=== PATIENT | female | born 1945 | race Caucasian/White ===

== ENCOUNTER 2016-07-31 09:06 | Outpatient (CLI) | payer OTHER | END 2016-07-31 09:07 | disposition critical access hospital (66) | DX: R07.81 Pleurodynia (principal); W01.0XXA Fall on same level from slipping, tripping and stumbling without subsequent striking against object, initial encounter; Y92.009 Unspecified place in unspecified non-institutional (private) residence as the place of occurrence of the external cause | CPT/HCPCS: A0425; A0429 ==

== ENCOUNTER 2016-07-31 09:14 | Emergency (ER) | payer OTHER ==
[2016-07-31] MEDS ORDERED: traMADol 50 MG TABLET PO STA ×2 (10:23→13:35)
[2016-07-31] MEDS ORDERED: traMADol 50 MG TABLET PO ONE ×2 (10:26→13:41)
[2016-07-31] MEDS ORDERED: IOPAMIDOL-300 100 ML VIAL IVP ONE (11:50)
== END 2016-07-31 14:00 | disposition home or self-care (01) ==
DX: S22.32XA Fracture of one rib, left side, initial encounter for closed fracture (principal); W01.198A Fall on same level from slipping, tripping and stumbling with subsequent striking against other object, initial encounter; Y92.009 Unspecified place in unspecified non-institutional (private) residence as the place of occurrence of the external cause
CPT/HCPCS: 36415; 71101; 71275; 80048; 99283; 99284; A9270; Q9967

== ENCOUNTER 2016-08-02 16:45 | Outpatient (CLI) | payer OTHER | END 2016-08-02 16:46 | disposition critical access hospital (66) | DX: M54.9 Dorsalgia, unspecified (principal) | CPT/HCPCS: A0425; A0427 ==

== ENCOUNTER 2016-08-02 16:52 | Emergency (ER) | payer MEDICARE, OTHER ==
[2016-08-02] MEDS ORDERED: KETOROLAC 60 MG/2 ML VIAL IVP STA (17:06)
[2016-08-02] MEDS ORDERED: MORPHINE 2 MG/ML SYRINGE IVP STA (17:06)
[2016-08-02] MEDS ORDERED: MORPHINE 2 MG/ML SYRINGE ONE (17:09)
[2016-08-02] MEDS ORDERED: KETOROLAC 30 MG/ML VIAL ONE (17:28)
[2016-08-02] MEDS ORDERED: ONDANSETRON ODT 4 MG Prepack 2 TL STA (18:46)
[2016-08-02] MEDS ORDERED: MORPHINE IR 15 MG TABLET PO STA (18:46)
[2016-08-02] MEDS ORDERED: ONDANSETRON ODT 4 MG Prepack 2 TL ONE (18:48)
[2016-08-02] MEDS ORDERED: MORPHINE IR 15 MG TABLET PO ONE (18:48)
== END 2016-08-02 18:58 | disposition home or self-care (01) ==
DX: S92.514A Nondisplaced fracture of proximal phalanx of right lesser toe(s), initial encounter for closed fracture (principal); S22.42XA Multiple fractures of ribs, left side, initial encounter for closed fracture; W01.0XXA Fall on same level from slipping, tripping and stumbling without subsequent striking against object, initial encounter; K21.9 Gastro-esophageal reflux disease without esophagitis
CPT/HCPCS: 36415; 71020; 73660; 80053; 83690; 85025; 96374; 96375; 99284; A9270

== ENCOUNTER 2016-08-26 12:29 | Outpatient (CLI) | payer OTHER | END 2016-08-26 12:30 | disposition home or self-care (01) | DX: R10.13 Epigastric pain (principal) ==

== ENCOUNTER 2016-09-28 22:41 | Emergency (ER) | payer OTHER ==
[2016-09-28 22:49] VITALS: BP 133/73
[2016-09-28] MEDS ORDERED: PROPARACAINE 0.5% OPHTH DROPS 15 ML ONE (22:50)
[2016-09-28] MEDS ORDERED: PROPARACAINE 0.5% OPHTH DROPS 15 ML EACHEYE STA (22:51)
[2016-09-28] MEDS ORDERED: POLYMYXIN B/TRIMETH OPHTH DROPS EACHEYE STA (22:58)
[2016-09-28] MEDS ORDERED: POLYMYXIN B/TRIMETH OPHTH DROPS ONE (22:59)
--- NOTE | 2016-09-28 23:01 | ED Physician Documentation ---
PD HPI OPHTHO - Stated complaint Stated Complaint: L EYE SWELLING - Chief complaint Chief Complaint: Heent - History obtained from History obtained from: Patient, Family - History of Present Illness Timing - onset: Yesterday Timing - duration: Days (2) Timing - details: Gradual onset Pain level max: 3 Pain level now: 3 Location: Both Quality / character: Aching Associated symptoms: Redness (used visine). No: Swelling Contributing factors: FB (possible during yardwork yesterday.), Wears glasses. No: Exposed to conjunctivitis, Recent URI, UV light (welding etc), Chemical exposure, acid, Chemical exposure, base, Wears contacts Similar symptoms before: Has not had sx before Recently seen: Not recently seen Review of Systems Constitutional: denies: Fever, Chills Eyes: denies: Decreased vision, Photophobia Skin: denies: Rash Neurologic: denies: Headache PD PAST MEDICAL HISTORY - Past Medical History Cardiovascular: None, Other Respiratory: Other Neuro: None Endocrine/Autoimmune: None GI: GERD, Hiatal hernia : None HEENT: None Psych: Depression, Anxiety Musculoskeletal: None Derm: None - Past Surgical History Past Surgical History: Yes General: Colonoscopy, EGD 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 HEENT: Tonsil/Adenoidectomy - Present Medications Home Medications: Ambulatory Orders Medication Instructions Recorded Confirmed Lorazepam [Ativan] 2.5 mg PO DAILY 03/20/14 08/02/16 Sertraline [Zoloft] 250 mg PO DAILY 03/20/14 08/02/16 Zaleplon 20 mg PO QPM 03/20/14 08/02/16 Buspirone HCl 15 mg PO BID 11/27/14 08/02/16 ARIPiprazole [Abilify] 5 mg PO DAILY 07/31/16 08/02/16 C-Ketotifen 1 mg PO BID PRN 07/31/16 08/02/16 Celecoxib [Celebrex] 200 mg PO DAILY 07/31/16 08/02/16 Imipramine HCl [Imipramine HCl] 100 mg PO DAILY 07/31/16 08/02/16 Thyroid [[place] Thyroid] 65 mg PO DAILY 07/31/16 08/02/16 Morphine Ir [Ms Ir] 15 mg PO Q6H PRN #30 tablet 08/02/16 Ondansetron HCl [Zofran] 4 mg PO Q6H PRN #20 tablet 08/02/16 traMADol [Ultram] 50 mg PO Q4-6H 08/02/16 08/02/16 - Allergies Allergies/Adverse Reactions: Allergies Allergy/AdvReac Type Severity Reaction Status Date / Time Penicillins Allergy Intermediate Rash Verified 08/02/16 17:03 acetaminophen [From Percocet] AdvReac Severe Stomach Verified 08/02/16 17:03 pain hydrocodone AdvReac Severe Stomach Verified 08/02/16 17:03 pain oxycodone HCl * AdvReac Severe Stomach Verified 08/02/16 17:03 [From Percocet] pain - Social History Does the pt smoke?: No Smoking Status: Never smoker Does the pt drink ETOH?: Yes Does the pt have substance abuse?: No - Immunizations Immunizations are current?: No - POLST Patient has POLST: Yes PD ED PE NORMAL - Vitals Vital signs reviewed: Yes - General General: Alert and oriented X 3, No acute distress - HEENT HEENT: EOMI, Moist mucous membranes - Derm Derm: Warm and dry - Neuro Neuro: Alert and oriented X 3 - Psych Psych: Normal mood, Normal affect PD ED PE EXPANDED - Eyes Eyes: Visual acuity - see nn, PERRL, Normal eyelids, Injected conj/sclera (mild B), Corneal abrasion (B corneas), Fluorescein uptake. No: Conj/sclera FB, Corneal FB Results - Vitals Vitals: Vital Signs - 24 hr 09/28/16 22:48 Temperature 36.4 C L Heart Rate 90 Respiratory 16 Rate Blood Pressure 133/73 H O2 Saturation 98 Oxygen O2 Source [With Activity] Room air O2 Source Room air PD MEDICAL DECISION MAKING - ED course Complexity details: considered differential, d/w patient ED course: Patient is a 70-year-old female who presents to the emergency department with eye discomfort bilaterally and is found to have bilateral corneal abrasions. Will place on ophthalmic antibiotics and follow-up with her doctor. She does not wear contacts. No retained foreign body. Eyelids everted. Patient counseled regarding signs and symptoms for which I believe and urgent re- evaluation would be necessary. Patient with good understanding of and agreement to plan and is comfortable going home at this time This document was made in part using voice recognition software. While efforts are made to proofread this document, sound alike and grammatical errors may occur. Departure - Departure Disposition: 01 Home, Self Care Clinical Impression: Corneal abrasion, bilateral Qualifiers: Encounter type: initial encounter Qualified Code(s): S05.01XA - Injury of conjunctiva and corneal abrasion without foreign body, right eye, initial encounter Condition: Good Instructions: ED Eye Injury Corneal Abrasion Follow-Up: Tyrone Barriga MD [Primary Care Provider] - Within 1 week Comments: Use the eye drops every 3 hours while awake for the next 7 days. Return if you worsen. Discharge Date/Time: 09/28/16 23:06
== END 2016-09-28 23:06 | disposition home or self-care (01) ==
LOC: ED 22:41
DX: S05.02XA Injury of conjunctiva and corneal abrasion without foreign body, left eye, initial encounter (principal); S05.01XA Injury of conjunctiva and corneal abrasion without foreign body, right eye, initial encounter; X58.XXXA Exposure to other specified factors, initial encounter; Y93.H2 Activity, gardening and landscaping
CPT/HCPCS: 99283; A9270; J3490

== ENCOUNTER 2017-07-01 08:00 | Outpatient (CLI) | payer OTHER ==
[2017-07-01 15:44] LABS: BASOPHILS # (AUTO) 0.1 10^3/uL (0.0-0.1); BASOPHILS % (AUTO) 0.9 %; EOSINOPHILS # (AUTO) 0.2 10^3/uL (0.0-0.7); EOSINOPHILS % (AUTO) 4.3 %; HGB - HEMOGLOBIN 13.6 g/dL (12.0-16.0); LYMPHOCYTES # (AUTO) 1.4 10^3/uL (1.5-3.5); MEAN CORPUSCULAR HGB CONC 33.8 g/dL (32.0-36.0); MEAN CORPUSCULAR VOLUME 88.8 fL (81.0-99.0); MEAN PLATELET VOLUME 8.6 fL (7.9-10.8); MONOCYTES # (AUTO) 0.5 10^3/uL (0.0-1.0); MONOCYTES % (AUTO) 9.9 %; NEUTROPHILS # (AUTO) 3.1 10^3/uL (1.5-6.6); NEUTROPHILS % (AUTO) 57.9 %; PLT - PLATELET COUNT 195 10^3/uL (130-450); RED BLOOD COUNT 4.54 10^6/uL (4.20-5.40); RED CELL DISTRIBUTION WIDTH 13.7 % (12.0-15.0); WHITE BLOOD COUNT 5.3 x10^3/uL (4.8-10.8)
[2017-07-01 16:05] LABS: ALBUMIN 4.2 g/dL (3.2-5.5); ALBUMIN/GLOBULIN RATIO 1.6 (1.0-2.2); ALKALINE PHOSPHATASE 63 IU/L (42-121); ALT ALANINE AMINOTRANSFERASE 16 IU/L (10-60); AST ASPARTATE AMINOTRANSFERASE 20 IU/L (10-42); BILIRUBIN,TOTAL 0.5 mg/dL (0.2-1.0); BUN - BLOOD UREA NITROGEN 18 mg/dL (6-20); CALCIUM 9.4 mg/dL (8.5-10.3); CARBON DIOXIDE - CO2 27 mmol/L (21-32); CHLORIDE 100 mmol/L (101-111); CHOL/HDL RATIO 4.2 (<4.4); CHOLESTEROL 226 mg/dL; CREATININE 0.8 mg/dL (0.4-1.0); GFR - MDRD 71 (>89); GLUCOSE 68 mg/dL (70-100); HDL CHOLESTEROL 54 mg/dL; LDL CHOLESTEROL,CALCULATED 155 mg/dL; LDL/HDL RATIO 2.9 (<4.4); SODIUM 138 mmol/L (135-145); TOTAL PROTEIN 6.9 g/dL (6.7-8.2); VLDL CHOLESTEROL 17 mg/dL
== END 2017-07-01 08:01 | disposition home or self-care (01) ==
LOC: LAB.R 08:00
PROVIDERS: ATTEND Internal Medicine
DX: E78.5 Hyperlipidemia, unspecified (principal); E03.9 Hypothyroidism, unspecified; F32.9 Major depressive disorder, single episode, unspecified; Z79.899 Other long term (current) drug therapy
CPT/HCPCS: 80053; 80061; 83721; 84443; 85025

== ENCOUNTER 2017-07-13 13:18 | Outpatient (CLI) | payer OTHER ==
--- NOTE | 2017-07-14 10:09 | DEXA Report ---
DEXA EXAM: 07/13/2017 TECHNIQUE: Dual energy x-ray absorptiometry (DXA) was performed on a Animated Speech system. Regions measured are the AP spine, femoral neck, and, if needed, forearm. COMPARISON: None. In accordance with the International Society for Clinical Densitometry (ISCD) guidelines, data from previous exams may be reanalyzed using current recommendations and techniques. This is done to allow a more accurate basis for comparison with the current study. FINDINGS The data for the lumbar spine is as follows: REGION BMD (g/cm/cm) T-SCORE Z-SCORE L1 0.858 -2.3 -0.9 L2 0.810 -3.2 -1.8 L3 1.001 -1.7 -0.3 L4 0.996 -1.7 -0.3 L1-L4 0.921 -2.2 -0.8 NOTE: L1 only used for spinal evaluation. T score -2.3 The data for the hip is as follows: REGION BMD (g/cm/cm) T-SCORE Z-SCORE Neck 0.706 -2.4 -0.8 TOTAL 0.756 -2.0 -0.6 NOTE: The femoral neck or total proximal femur, whichever is lowest, is used for classification. IMPRESSION WHO CLASSIFICATION OF THE HIP BASED ON THE INTERNATIONAL REFERENCE STANDARD: OSTEOPENIA. WHO CLASSIFICATION FOR THE LUMBAR SPINE: OSTEOPENIA. FRACTURE RISK IS INCREASED. RECOMMENDATION: Patients with diagnosis of osteoporosis or osteopenia should have regular bone mineral density assessment. For those eligible for Medicare, routine testing is allowed once every 2 years. Testing frequency can be increased for patients who have rapidly progressing disease or for those who are receiving medical therapy to restore bone mass. COMMENT World Health Organization (WHO) definitions for osteoporosis and osteopenia: NORMAL BMD: T-score at 1.0 or higher, fracture risk is low. OSTEOPENIA BMD: T-score between 1.0 and -2.5, fracture risk is increased. OSTEOPOROSIS BMD: T-score at 2.5 or lower, fracture risk high. National Osteoporosis Foundation recommends: 1. Obtain adequate dietary calcium (at least 1200 mg per day) and vitamin D (400 -800 international units per day). 2. Participate, as appropriate, in regular weightbearing and muscle- strengthening exercise. 3. Avoid tobacco use and reduce alcohol and caffeine intake. 4. For more detailed information see the website at www.NOF.org. TD: 07/13/2017 16:16 MTDD
== END 2017-07-13 13:19 | disposition home or self-care (01) ==
LOC: DI 13:18
PROVIDERS: ATTEND Internal Medicine
DX: M85.89 Other specified disorders of bone density and structure, multiple sites (principal)
CPT/HCPCS: 77080

== ENCOUNTER 2019-01-12 11:38 | Outpatient (CLI) | payer OTHER ==
--- NOTE | 2019-01-17 13:19 | DEXA Report ---
Reason: OSTEOPOROSIS Procedure Date: 01/12/2019 Accession Number: [id number] / [id number] Procedure: DEX - Dexa Spine and/or Hip CPT Code: FULL RESULT: EXAM: Dexa Spine and/or Hip DATE: 01/12/2019 12:05 PM CLINICAL HISTORY: Osteopenia follow-up TECHNIQUE: Dual energy x-ray absorptiometry (DXA) was performed on a [employer] System. Regions measured are the AP Spine, femoral neck, and if needed forearm. COMPARISON: 07/13/2017 In accordance with the International Society for Clinical Densitometry (ISCD) guidelines, data from previous exams may be reanalyzed using current recommendations and techniques. This is done to allow a more accurate basis for comparison with the current study. FINDINGS: The data for the lumbar spine is as follows: BMD (g/cm/cm) T-SCORE Z-SCORE REGION L1 0.908 -1.9 -0.5 L2 0.859 -2.8 -1.5 L3 0.982 -1.8 -0.5 L4 1.035 -1.4 0.0 TOTAL 0.954 -1.9 -0.5 NOTE: All evaluable vertebrae are used for classification The data for the hip is as follows: BMD (g/cm/cm) T-SCORE Z-SCORE REGION Neck 0.704 -2.4 -0.8 TOTAL 0.746 -2.1 -0.7 NOTE: The femoral neck or total proximal femur, whichever is lowest, is used for classification. DXA RESULTS SUMMARY: Spine SCAN DATE AGE BMD CHANGE VS CHANGE VS PREVIOUS PREVIOUS % 01[birth year]12/2019 [age] 0.954 0.033* 3.6* 07/13/2017 [age] 0[age]921 * Denotes significant change at the 95% confidence level. Denotes dissimilar scan types or analysis methods. DXA RESULTS SUMMARY: Hip SCAN DATE AGE BMD CHANGE VS CHANGE VS PREVIOUS PREVIOUS % [birth year][age]12[birth year]2019 [age] 0.746 -0.010 -1.3 07/13/2017 [age] 0.756 * Denotes significant change at the 95% confidence level. Denotes dissimilar scan types or analysis methods. IMPRESSION: THE WHO CLASSIFICATION BASED ON THE INTERNATIONAL REFERENCE STANDARD IS OSTEOPENIA, REFERENCE LEFT FEMORAL NECK. THE FRACTURE RISK IS INCREASED. RECOMMENDATION: Patients with diagnosis of osteoporosis or osteopenia should have regular bone mineral density assessment. For those eligible for Medicare, routine testing is allowed once every 2 years. Testing frequency can be increased for patients who have rapidly progressing disease or for those who are receiving medical therapy to restore bone mass. COMMENT: World Health Organization (WHO) definitions for osteoporosis and osteopenia: NORMAL BMD: T-score at -1.0 or higher, fracture risk is low OSTEOPENIA BMD: T-score between -1.0 and -2.5, fracture risk is increased. OSTEOPOROSIS BMD: T-score at -2.5 or lower, fracture risk is high. National Osteoporosis Foundation recommends: 1. Obtain adequate dietary calcium (at least 1200 mg per day) and vitamin D (400-800 international units per day). 2. Participate, as appropriate, in regular weightbearing and muscle-strengthening exercise. 3. Avoid tobacco use and reduce alcohol and caffeine intake. 4. For more detailed information see the website at www.NOF.org.
== END 2019-01-12 11:39 | disposition home or self-care (01) ==
LOC: DI 11:38
PROVIDERS: ATTEND Family Medicine
DX: M85.89 Other specified disorders of bone density and structure, multiple sites (principal)
CPT/HCPCS: 77080

== ENCOUNTER 2019-01-13 09:50 | Outpatient (CLI) | payer OTHER ==
[2019-01-13 10:02] LABS: BASOPHILS % (AUTO) 0.5 %; EOSINOPHILS # (AUTO) 0.2 10^3/uL (0.0-0.7); EOSINOPHILS % (AUTO) 4.1 %; HGB - HEMOGLOBIN 13.7 g/dL (12.0-16.0); LYMPHOCYTES # (AUTO) 1.4 10^3/uL (1.5-3.5); LYMPHOCYTES % (AUTO) 23.4 %; MEAN CORPUSCULAR HEMOGLOBIN 29.2 pg (27.0-31.0); MEAN CORPUSCULAR HGB CONC 32.9 g/dL (32.0-36.0); MEAN CORPUSCULAR VOLUME 88.9 fL (81.0-99.0); MEAN PLATELET VOLUME 9.9 fL (7.9-10.8); MONOCYTES # (AUTO) 0.5 10^3/uL (0.0-1.0); MONOCYTES % (AUTO) 7.6 %; NEUTROPHILS # (AUTO) 3.8 10^3/uL (1.5-6.6); NEUTROPHILS % (AUTO) 64.1 %; PLT - PLATELET COUNT 191 10^3/uL (130-450); RED BLOOD COUNT 4.69 10^6/uL (4.20-5.40); RED CELL DISTRIBUTION WIDTH 13.9 % (12.0-15.0); WHITE BLOOD COUNT 5.9 x10^3/uL (4.8-10.8)
[2019-01-13 10:18] LABS: ALBUMIN 4.3 g/dL (3.2-5.5); ALBUMIN/GLOBULIN RATIO 1.5 (1.0-2.2); ALKALINE PHOSPHATASE 61 IU/L (42-121); ALT ALANINE AMINOTRANSFERASE 16 IU/L (10-60); AST ASPARTATE AMINOTRANSFERASE 19 IU/L (10-42); BILIRUBIN,TOTAL 0.6 mg/dL (0.2-1.0); BUN - BLOOD UREA NITROGEN 16 mg/dL (6-20); CALCIUM 9.5 mg/dL (8.5-10.3); CARBON DIOXIDE - CO2 25 mmol/L (21-32); CHLORIDE 105 mmol/L (101-111); CHOL/HDL RATIO 4.7 (<4.4); CHOLESTEROL 232 mg/dL; CREATININE 0.7 mg/dL (0.4-1.0); GFR - MDRD 82 (>89); GLUCOSE 97 mg/dL (70-100); HDL CHOLESTEROL 49 mg/dL; LDL CHOLESTEROL,CALCULATED 159 mg/dL; LDL/HDL RATIO 3.2 (<4.4); SODIUM 140 mmol/L (135-145); TOTAL PROTEIN 7.1 g/dL (6.7-8.2); VLDL CHOLESTEROL 24 mg/dL
[2019-01-13 10:56] LABS: THYROID STIMULATING HORMONE 2.78 uIU/mL (0.34-5.60)
[2019-01-13 10:58] LABS: FREE T4 (FREE THYROXINE) 0.64 ng/dL (0.58-1.64)
== END 2019-01-13 09:51 | disposition home or self-care (01) ==
LOC: LAB 09:50
PROVIDERS: ATTEND Family Medicine
DX: M81.0 Age-related osteoporosis without current pathological fracture (principal); F32.9 Major depressive disorder, single episode, unspecified; F41.1 Generalized anxiety disorder; E78.5 Hyperlipidemia, unspecified; E03.9 Hypothyroidism, unspecified
CPT/HCPCS: 36415; 80053; 80061; 83721; 84439; 84443; 84481; 85025

== ENCOUNTER 2019-06-07 14:52 | Emergency (ER) | payer OTHER ==
[2019-06-07] MEDS ORDERED: DEXAMETHASONE 10 MG/ML VIAL PO STA (15:26)
[2019-06-07] MEDS ORDERED: MELOXICAM 7.5 MG TABLET PO STA (15:26)
[2019-06-07] MEDS ORDERED: CHERRY SYRUP 10 ML UDC PO ONE (15:26)
--- NOTE | 2019-06-07 15:30 | ED Physician Documentation ---
History of Present Illness - Stated complaint Stated Complaint: RT LEG/FOOT PX AND TINGLING - Chief complaint Chief Complaint: Ext Problem - History obtained from History obtained from: Patient - History of Present Illness Timing: Today Pain level max: 4 Pain level now: 3 Improved by: Rest Worsened by: Movement - Additonal information Additional information: 73-year-old female states that she had cataract surgery yesterday. This morning she got up and had tingling and shooting pains radiating down the back of her right leg. Worse with movement and better with rest. Denies any trauma. No changes to her medications. No swelling. The cataract surgery took approximately 45 minutes. Review of Systems Constitutional: denies: Fever, Chills Cardiac: denies: Chest pain / pressure Respiratory: denies: Cough GI: denies: Abdominal Pain, Nausea, Vomiting, Diarrhea : denies: Dysuria Skin: denies: Rash Musculoskeletal: denies: Neck pain Neurologic: denies: Focal weakness, Numbness, Confused, Altered mental status PD PAST MEDICAL HISTORY - Past Medical History Cardiovascular: None, Other Respiratory: Other Endocrine/Autoimmune: None GI: GERD, Hiatal hernia : None HEENT: None Psych: Depression, Anxiety Musculoskeletal: None Derm: None Other Past Medical History: Tremors - Past Surgical History Past Surgical History: Yes General: Colonoscopy, EGD 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 HEENT: Cataracts, Tonsil/Adenoidectomy - Present Medications Home Medications: Ambulatory Orders Medication Instructions Recorded Confirmed Lorazepam [Ativan] 3 mg PO DAILY 03/20/14 06/07/19 Sertraline [Zoloft] 300 mg PO DAILY 03/20/14 06/07/19 Zaleplon 20 mg PO QPM 03/20/14 08/02/16 Buspirone HCl 15 mg PO BID 11/27/14 08/02/16 ARIPiprazole [Abilify] 5 mg PO DAILY 07/31/16 08/02/16 C-Ketotifen 1 mg PO BID PRN 07/31/16 08/02/16 Celecoxib [Celebrex] 200 mg PO DAILY 07/31/16 08/02/16 Imipramine HCl 150 mg PO DAILY 07/31/16 08/02/16 Thyroid [[place] Thyroid] 65 mg PO DAILY 07/31/16 08/02/16 Morphine Ir [Ms Ir] 15 mg PO Q6H PRN #30 tablet 08/02/16 Ondansetron HCl [Zofran] 4 mg PO Q6H PRN #20 tablet 08/02/16 traMADol [Ultram] 50 mg PO Q4-6H 08/02/16 08/02/16 - Allergies Allergies/Adverse Reactions: Allergies Allergy/AdvReac Type Severity Reaction Status Date / Time Penicillins Allergy Intermediate Rash Verified 06/07/19 14:59 acetaminophen [From Percocet] AdvReac Severe Stomach Verified 06/07/19 14:59 pain hydrocodone AdvReac Severe Stomach Verified 06/07/19 14:59 pain oxycodone HCl * AdvReac Severe Stomach Verified 06/07/19 14:59 [From Percocet] pain - Social History Does the pt smoke?: No Smoking Status: Never smoker Does the pt drink ETOH?: Yes Does the pt have substance abuse?: No - Immunizations Immunizations are current?: Yes - POLST Patient has POLST: Yes PD ED PE NORMAL - Vitals Vital signs reviewed: Yes - General General: Alert and oriented X 3, No acute distress, Well developed/nourished - HEENT HEENT: Moist mucous membranes - Neck Neck: Supple, no meningeal sign - Cardiac Cardiac: RRR, Strong equal pulses - Respiratory Respiratory: No respiratory distress, Clear bilaterally - Abdomen Abdomen: Soft, Non tender, Non distended - Back Back: No spinal TTP - Derm Derm: Warm and dry - Extremities Extremities: Normal ROM s pain, No edema, No calf tenderness / cord, Other (Normal bilateral lower extremity patellar and ankle jerk reflexes. Normal great toe extension bilaterally. no saddle anesthesia) - Neuro Neuro: Alert and oriented X 3, acquisition consultant 2-12 intact, No motor deficit, No sensory deficit - Psych Psych: Normal mood, Normal affect Results - Vitals Vitals: Vital Signs - 24 hr 06/07/19 06/07/19 14:59 16:41 Temperature 36.8 C 37.1 C Heart Rate 78 64 Respiratory 14 16 Rate Blood Pressure 121/67 120/54 L O2 Saturation 98 97 Oxygen O2 Source [With Activity] Room air O2 Source Room air - Labs Labs: Laboratory Tests 06/07/19 06/07/19 15:35 15:35 WBC 7.1 RBC 4.51 Hgb 13.7 Hct 40.6 MCV 90.0 MCH 30.4 MCHC 33.7 RDW 13.6 Plt Count 220 MPV 9.6 Neut # (Auto) 4.9 Lymph # (Auto) 1.4 L [place] # (Auto) 0.5 Eos # (Auto) 0.1 Baso # (Auto) 0.1 Absolute Nucleated RBC 0.00 Nucleated RBC % 0.0 Sodium 138 Potassium 4.4 Chloride 103 Carbon Dioxide 23 Anion Gap 12.0 BUN 11 Creatinine 0.8 Estimated GFR (MDRD) 70 L Glucose 114 H Calcium 9.4 Phosphorus 2.6 Magnesium 2.2 PD MEDICAL DECISION MAKING - ED course Complexity details: reviewed results, re-evaluated patient, considered differential (No cauda equina, no spinal epidural abscess, no fracture, no aortic dissection or evidence of aneursym rupture), d/w patient ED course: 73-year-old female with pain radiating from the low back down the posterior aspect of her right leg. Appears to be consistent with sciatica. No evidence of cauda equina or epidural abscess. Ambulating without difficulty in the emergency department. Feels better after Toradol and Decadron. No evidence of DVT. Patient counseled regarding signs and symptoms for which I believe and urgent re-evaluation would be necessary. Patient with good understanding of and agreement to plan and is comfortable going home at this time This document was made in part using voice recognition software. While efforts are made to proofread this document, sound alike and grammatical errors may occur. Departure - Departure Disposition: 01 Home, Self Care Clinical Impression: Sciatica Qualifiers: Laterality: right Qualified Code(s): M54.31 - Sciatica, right side Condition: Good Instructions: ED Sciatica Follow-Up: Francisco Berg MD [Primary Care Provider] - Within 1 week Comments: This should improve over the next 24 hours. Return if you worsen. Discharge Date/Time: 06/07/19 16:49
[2019-06-07 15:42] LABS: BASOPHILS # (AUTO) 0.1 10^3/uL (0.0-0.1); BASOPHILS % (AUTO) 0.7 %; EOSINOPHILS # (AUTO) 0.1 10^3/uL (0.0-0.7); HGB - HEMOGLOBIN 13.7 g/dL (12.0-16.0); LYMPHOCYTES # (AUTO) 1.4 10^3/uL (1.5-3.5); MEAN CORPUSCULAR HEMOGLOBIN 30.4 pg (27.0-31.0); MEAN CORPUSCULAR HGB CONC 33.7 g/dL (32.0-36.0); MEAN PLATELET VOLUME 9.6 fL (7.9-10.8); MONOCYTES # (AUTO) 0.5 10^3/uL (0.0-1.0); MONOCYTES % (AUTO) 7.5 %; NEUTROPHILS # (AUTO) 4.9 10^3/uL (1.5-6.6); NEUTROPHILS % (AUTO) 69.1 %; PLT - PLATELET COUNT 220 10^3/uL (130-450); RED BLOOD COUNT 4.51 10^6/uL (4.20-5.40); RED CELL DISTRIBUTION WIDTH 13.6 % (12.0-15.0); WHITE BLOOD COUNT 7.1 x10^3/uL (4.8-10.8)
[2019-06-07 15:54] LABS: CALCIUM 9.4 mg/dL (8.5-10.3); CREATININE 0.8 mg/dL (0.4-1.0); MAGNESIUM 2.2 mg/dL (1.7-2.8); PHOSPHORUS 2.6 mg/dL (2.5-4.6)
[2019-06-07 16:45] VITALS: BP 120/54
== END 2019-06-07 16:49 | disposition home or self-care (01) ==
LOC: ED 14:52
DX: M54.31 Sciatica, right side (principal)
CPT/HCPCS: 36415; 80048; 83735; 84100; 85025; 99283; 99284; A9270

== ENCOUNTER 2019-10-24 13:12 | Outpatient (CLI) | payer OTHER, MEDICARE ==
--- NOTE | 2019-11-07 13:23 | Mammography Report ---
BILATERAL DIGITAL SCREENING MAMMOGRAM 3D/2D: 10/24/2019 CLINICAL: Routine screening. Comparison is made to exams dated: 05/26/2018 mammogram and 10/09/2016 mammogram - [facility]. The tissue of both breasts is heterogeneously dense. This may lower the sensitivity of nicolasa mography. No significant masses, calcifications, or other findings are seen in either breast. There has been no significant interval change. IMPRESSION: NEGATIVE There is no mammographic evidence of malignancy. A 1 year screening mammogram is recommended. This exam was interpreted at Station ID: [id number]. NOTE: For mammograms, a report in lay terms will be sent to the patient. Approximately 15% of breast malignancies will not be visualized mammographically. In the management of a palpable breast mass, a negative mammogram must not discourage biopsy of a clinically suspicious lesion. Electronically Signed By: Asa Kim M.D. slc/penrad:11/04/2019 16:16:23 ACR BI-RADS Category 1: Negative [id number] PARENCHYMAL PATTERN: (D) - The breast(s) demonstrate(s) heterogeneously dense fibroglandular mary juan. BI-RADS CATEGORY: (1) - 1 RECOMMENDATION: (ANNUAL) - Recommend routine annual screening mammography. [id number] 1 year screening LATERALITY: (B)
== END 2019-10-24 13:13 | disposition home or self-care (01) ==
LOC: DI 13:12
PROVIDERS: ATTEND Family Medicine
DX: Z12.31 Encounter for screening mammogram for malignant neoplasm of breast (principal)
CPT/HCPCS: 77063; 77067

== ENCOUNTER 2020-07-09 08:00 | Outpatient (CLI) | payer OTHER, MEDICARE ==
[2020-07-09 18:33] LABS: BASOPHILS % (AUTO) 0.6 %; EOSINOPHILS # (AUTO) 0.3 10^3/uL (0.0-0.7); EOSINOPHILS % (AUTO) 4.1 %; HCT - HEMATOCRIT 42.1 % (37.0-47.0); HGB - HEMOGLOBIN 13.8 g/dL (12.0-16.0); LYMPHOCYTES # (AUTO) 1.6 10^3/uL (1.5-3.5); LYMPHOCYTES % (AUTO) 24.7 %; MEAN CORPUSCULAR HGB CONC 32.8 g/dL (32.0-36.0); MEAN CORPUSCULAR VOLUME 91.5 fL (81.0-99.0); MEAN PLATELET VOLUME 10.6 fL (7.9-10.8); MONOCYTES # (AUTO) 0.7 10^3/uL (0.0-1.0); MONOCYTES % (AUTO) 10.5 %; NEUTROPHILS # (AUTO) 3.9 10^3/uL (1.5-6.6); NEUTROPHILS % (AUTO) 59.8 %; PLT - PLATELET COUNT 228 10^3/uL (130-450); RED CELL DISTRIBUTION WIDTH 13.7 % (12.0-15.0); WHITE BLOOD COUNT 6.6 x10^3/uL (4.8-10.8)
[2020-07-09 18:39] LABS: ALBUMIN 4.6 g/dL (3.2-5.5); ALBUMIN/GLOBULIN RATIO 1.6 (1.0-2.2); BILIRUBIN,TOTAL 0.8 mg/dL (0.2-1.0); CREATININE 0.8 mg/dL (0.4-1.0); POTASSIUM 3.9 mmol/L (3.5-5.0); TOTAL PROTEIN 7.5 g/dL (6.7-8.2)
[2020-07-09 18:58] LABS: THYROID STIMULATING HORMONE 2.06 uIU/mL (0.34-5.60)
[2020-07-09 19:00] LABS: FREE T3 3.56 pg/mL (2.5-3.9)
[2020-07-09 19:01] LABS: FREE T4 (FREE THYROXINE) 0.84 ng/dL (0.58-1.64)
== END 2020-07-09 08:01 | disposition home or self-care (01) ==
LOC: LAB.WCP 08:00
PROVIDERS: ATTEND Family Medicine
DX: E03.9 Hypothyroidism, unspecified (principal); F41.1 Generalized anxiety disorder
CPT/HCPCS: 36415; 80053; 84439; 84443; 84481; 85025

== ENCOUNTER 2020-12-25 15:37 | Outpatient (CLI) | payer MEDICARE, OTHER ==
[2020-12-25 18:07] LABS: BASOPHILS # (AUTO) 0.1 10^3/uL (0.0-0.1); BASOPHILS % (AUTO) 0.7 %; EOSINOPHILS # (AUTO) 0.2 10^3/uL (0.0-0.7); EOSINOPHILS % (AUTO) 1.8 %; HGB - HEMOGLOBIN 14.6 g/dL (12.0-16.0); LYMPHOCYTES # (AUTO) 1.9 10^3/uL (1.5-3.5); LYMPHOCYTES % (AUTO) 22.2 %; MEAN CORPUSCULAR HEMOGLOBIN 29.8 pg (27.0-31.0); MEAN CORPUSCULAR HGB CONC 32.4 g/dL (32.0-36.0); MEAN CORPUSCULAR VOLUME 91.8 fL (81.0-99.0); MEAN PLATELET VOLUME 10.5 fL (7.9-10.8); MONOCYTES # (AUTO) 0.6 10^3/uL (0.0-1.0); MONOCYTES % (AUTO) 7.1 %; NEUTROPHILS # (AUTO) 5.7 10^3/uL (1.5-6.6); NEUTROPHILS % (AUTO) 67.8 %; PLT - PLATELET COUNT 252 10^3/uL (130-450); RED CELL DISTRIBUTION WIDTH 14.9 % (12.0-15.0); WHITE BLOOD COUNT 8.4 x10^3/uL (4.8-10.8)
[2020-12-25 18:27] LABS: ALBUMIN 4.7 g/dL (3.2-5.5); ALBUMIN/GLOBULIN RATIO 1.5 (1.0-2.2); BILIRUBIN,TOTAL 0.9 mg/dL (0.2-1.0); CALCIUM 10.5 mg/dL (8.5-10.3); CREATININE 0.8 mg/dL (0.4-1.0); POTASSIUM 4.3 mmol/L (3.5-5.0); TOTAL PROTEIN 7.8 g/dL (6.7-8.2)
[2020-12-25 18:38] LABS: THYROID STIMULATING HORMONE 2.87 uIU/mL (0.34-5.60)
== END 2020-12-25 23:59 | disposition home or self-care (01) ==
LOC: LAB.WCP 15:37
PROVIDERS: ATTEND Family Medicine
DX: G45.9 Transient cerebral ischemic attack, unspecified (principal)
CPT/HCPCS: 36415; 80053; 84443; 85025; 85651

== ENCOUNTER 2020-12-27 10:25 | Outpatient (CLI) | payer OTHER, MEDICARE ==
[2020-12-27] MEDS ORDERED: GADOBUTROL 7.5 MMOL/7.5 ML VIAL ONE (10:47)
--- NOTE | 2020-12-27 12:45 | MRI Report ---
PROCEDURE: Brain W/WO INDICATIONS: TIA CONTRAST: IV CONTRAST: Gadavist ml: 7.5 TECHNIQUE: Noncontrast axial T1 spin echo, axial T2 fast spin echo, sagittal and axial FLAIR, coronal T2 fast sp in echo, axial gradient echo, axial diffusion and ADC through the brain. After the administration of contrast, axial and coronal T1 spin echo with fat saturation through the brain. COMPARISON: None. FINDINGS: Image quality: Excellent. CSF spaces: Basal cisterns are patent. No extra-axial fluid collections. Ventricles are normal in size and shape. Brain: No midline shift. No intracranial bleeds or masses. No abnormal intracranial enhancement. There is mild to moderate cerebral volume loss for age. There is mild periventricular white matter c hronic small vessel ischemic change. The brainstem appears normal. No GRE weighted abnormalities joseph ntified in the brain parenchyma. Diffusion-weighted images demonstrate no acute ischemic insults. No chronic ischemic insults. Normal intravascular flow voids are present. Dural sinuses demonstrate no rmal postcontrast enhancement. Skull and face: Calvarial marrow is normal in signal. Orbits appear normal. Sinuses: Sinuses and mastoids appear clear. IMPRESSION: 1. No acute intracranial disease process. 2. No areas of acute or chronic infarction. 3. No abnormal intracranial mass or mass effect. 4. No suspicious postcontrast enhancement. 5. No intracranial hemorrhage. Reviewed by: Anuradha Vital MD, PhD on 12/27/2020 12:43 PM PDT Approved by: Anuradha Vital MD, PhD on 12/27/2020 12:43 PM PDT Station ID: [id number]
[2020-12-27] MEDS ORDERED: GADOBUTROL 7.5 MMOL/7.5 ML VIAL IVP ONE (12:54)
== END 2020-12-27 10:26 | disposition home or self-care (01) ==
LOC: DI 10:25
PROVIDERS: ATTEND Family Medicine
DX: G45.9 Transient cerebral ischemic attack, unspecified (principal)
CPT/HCPCS: 70553; A9585

== ENCOUNTER 2020-12-31 13:31 | Outpatient (CLI) | payer OTHER | END 2020-12-31 13:32 | disposition home or self-care (01) | LOC: COV 13:31 | PROVIDERS: ATTEND Family Medicine | DX: R05 Cough (principal); M79.10 Myalgia, unspecified site; R53.83 Other fatigue; R19.7 Diarrhea, unspecified; R09.81 Nasal congestion; J34.89 Other specified disorders of nose and nasal sinuses; Z20.822 Contact with and (suspected) exposure to COVID-19 ==

== ENCOUNTER 2021-02-22 12:39 | Emergency (ER) | payer MEDICARE, OTHER ==
--- NOTE | 2021-02-22 13:12 | XRAY Report ---
PROCEDURE: Chest 1 View X-Ray INDICATIONS: Chest pain TECHNIQUE: One view of the chest was acquired. COMPARISON: August 02, 2016 FINDINGS: SUPPORT DEVICES: None. LUNG/PLEURA: No focal consolidation or pulmonary edema. No pleural effusion or space-occupying pneumo thorax. MEDIASTINUM: The cardiomediastinal silhouette is within normal limits. BONES/SOFT TISSUES: No acute abnormality. A surgical anchor projects over the right humeral head. IMPRESSION: 1.No acute cardiopulmonary abnormality. Reviewed by: Vladimir Santamaria MD on 02/22/2021 1:11 PM PDT Approved by: Vladimir Santamaria MD on 02/22/2021 1:11 PM PDT Station ID: [id number]
[2021-02-22 13:18] LABS: BASOPHILS # (AUTO) 0.1 10^3/uL (0.0-0.1); BASOPHILS % (AUTO) 0.9 %; EOSINOPHILS # (AUTO) 0.2 10^3/uL (0.0-0.7); HCT - HEMATOCRIT 40.8 % (37.0-47.0); HGB - HEMOGLOBIN 13.6 g/dL (12.0-16.0); LYMPHOCYTES # (AUTO) 1.7 10^3/uL (1.5-3.5); LYMPHOCYTES % (AUTO) 24.7 %; MEAN CORPUSCULAR HEMOGLOBIN 30.6 pg (27.0-31.0); MEAN CORPUSCULAR HGB CONC 33.3 g/dL (32.0-36.0); MEAN CORPUSCULAR VOLUME 91.9 fL (81.0-99.0); MEAN PLATELET VOLUME 9.9 fL (7.9-10.8); MONOCYTES # (AUTO) 0.5 10^3/uL (0.0-1.0); NEUTROPHILS # (AUTO) 4.5 10^3/uL (1.5-6.6); PLT - PLATELET COUNT 216 10^3/uL (130-450); RED BLOOD COUNT 4.44 10^6/uL (4.20-5.40); RED CELL DISTRIBUTION WIDTH 13.6 % (12.0-15.0); WHITE BLOOD COUNT 7.1 x10^3/uL (4.8-10.8)
[2021-02-22 13:28] LABS: ALBUMIN 4.6 g/dL (3.2-5.5); ALBUMIN/GLOBULIN RATIO 1.5 (1.0-2.2); BILIRUBIN,TOTAL 0.5 mg/dL (0.2-1.0); CALCIUM 9.9 mg/dL (8.5-10.3); CREATININE 0.8 mg/dL (0.4-1.0); TOTAL PROTEIN 7.6 g/dL (6.7-8.2)
--- NOTE | 2021-02-22 13:36 | ED Physician Documentation ---
PD HPI CHEST PAIN - Stated complaint Stated Complaint: CHEST PX - Chief complaint Chief Complaint: Cardiac - History obtained from History obtained from: Patient - Additional information Additional information: Pt presented w/ a "whoomph" feeling around her heart earlier today. Lasted a few seconds and occurred on two occasions. She denies any chest pain, no sob, no diaphoresis, no n/v, no weakness. Has had a similar sensation in the past. Currently asymptomatic. No meds or other treatment attempted. Review of Systems Constitutional: reports: Reviewed and negative Cardiac: reports: Palpitations. 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 HEENT: Cataracts, Tonsil/Adenoidectomy - Present Medications Home Medications: Ambulatory Orders Medication Instructions Recorded Confirmed Lorazepam [Ativan] 3 mg PO DAILY 03/20/14 06/07/19 Sertraline [Zoloft] 300 mg PO DAILY 03/20/14 06/07/19 Zaleplon 20 mg PO QPM 03/20/14 08/02/16 Buspirone HCl 15 mg PO BID 11/27/14 08/02/16 ARIPiprazole [Abilify] 5 mg PO DAILY 07/31/16 08/02/16 C-Ketotifen 1 mg PO BID PRN 07/31/16 08/02/16 Celecoxib [Celebrex] 200 mg PO DAILY 07/31/16 08/02/16 Imipramine HCl 150 mg PO DAILY 07/31/16 08/02/16 Thyroid [[place] Thyroid] 65 mg PO DAILY 07/31/16 08/02/16 Morphine Ir [Ms Ir] 15 mg PO Q6H PRN #30 tablet 08/02/16 Ondansetron HCl [Zofran] 4 mg PO Q6H PRN #20 tablet 08/02/16 traMADol [Ultram] 50 mg PO Q4-6H 08/02/16 08/02/16 - Allergies Allergies/Adverse Reactions: Allergies Allergy/AdvReac Type Severity Reaction Status Date / Time Penicillins Allergy Intermediate Rash Verified 02/22/21 12:52 hydrocodone AdvReac Severe Stomach Verified 02/22/21 12:52 pain oxycodone HCl * AdvReac Severe Stomach Verified 02/22/21 12:52 [From Percocet] pain - Social History Does the pt smoke?: No Smoking Status: Never smoker Does the pt drink ETOH?: Yes Does the pt have substance abuse?: No - Immunizations Immunizations are current?: Yes - POLST Patient has POLST: Yes PD ED PE NORMAL - Vitals Vital signs reviewed: Yes - General General: Alert and oriented X 3, No acute distress, Well developed/nourished - HEENT HEENT: Atraumatic, Pharynx benign - Neck Neck: Supple, no meningeal sign, No JVD - Cardiac Cardiac: RRR, No murmur, No gallop, No rub, Strong equal pulses - Respiratory Respiratory: No respiratory distress, Clear bilaterally - Abdomen Abdomen: Normal bowel sounds, Soft, Non tender, Non distended - Derm Derm: Normal color, Warm and dry, No rash - Neuro Neuro: Alert and oriented X 3 Eye Opening: Spontaneous Motor: Obeys Commands Verbal: Oriented GCS Score: 15 - Psych Psych: Normal mood, Normal affect Results - Vitals Vitals: Vital Signs - 24 hr 02/22/21 02/22/21 02/22/21 13:42 14:00 15:03 Heart Rate 74 75 67 Respiratory 14 16 18 Rate Blood Pressure 122/62 122/62 109/57 L O2 Saturation 96 93 94 02/22/21 02/22/21 15:45 16:02 Heart Rate 69 701 H Respiratory 19 20 Rate Blood Pressure 105/57 L 114/70 O2 Saturation 98 95 Oxygen O2 Source [] Room air O2 Source Room air - EKG (time done) No standard instances Rate: Rate (enter#) (82) Rhythm: NSR Amelia: Normal Intervals: Normal MD QRS: Normal Ischemia: Normal ST segments Computer interpretation: Agree with computer - Labs Labs: Laboratory Tests 02/22/21 02/22/21 02/22/21 13:09 13:09 13:09 WBC 7.1 RBC 4.44 Hgb 13.6 Hct 40.8 MCV 91.9 MCH 30.6 MCHC 33.3 RDW 13.6 Plt Count 216 MPV 9.9 Neut # (Auto) 4.5 Lymph # (Auto) 1.7 Bay # (Auto) 0.5 Eos # (Auto) 0.2 Baso # (Auto) 0.1 Absolute Nucleated RBC 0.00 Nucleated RBC % 0.0 Sodium 140 Potassium 4.0 Chloride 104 Carbon Dioxide 26 Anion Gap 10.0 BUN 19 Creatinine 0.8 Estimated GFR (MDRD) 70 L Glucose 111 H Calcium 9.9 Total Bilirubin 0.5 AST 20 ALT 18 Alkaline Phosphatase 63 Troponin I High Sens 3.1 B-Natriuretic Peptide Total Protein 7.6 Albumin 4.6 Globulin 3.0 Albumin/Globulin Ratio 1.5 Lipase 28 02/22/21 02/22/21 13:09 15:14 WBC RBC Hgb Hct MCV MCH MCHC RDW Plt Count MPV Neut # (Auto) Lymph # (Auto) Bay # (Auto) Eos # (Auto) Baso # (Auto) Absolute Nucleated RBC Nucleated RBC % Sodium Potassium Chloride Carbon Dioxide Anion Gap BUN Creatinine Estimated GFR (MDRD) Glucose Calcium Total Bilirubin AST ALT Alkaline Phosphatase Troponin I High Sens 3.6 B-Natriuretic Peptide 138 H Total Protein Albumin Globulin Albumin/Globulin Ratio Lipase PD MEDICAL DECISION MAKING - ED course Complexity details: reviewed results, re-evaluated patient, considered differential, d/w patient ED course: This is a 75-year-old female who presented with a sensation of heart palpitations Lasted only seconds and resolved on its own. She had no chest pain. We did an EKG here which is nonischemic and showing normal sinus rhythm, her labs are reassuring, Trope negative x2. I will suspicion for ACS in this patient the did advise her to follow-up with her primary care provider in the next week or so, may benefit from a Holter monitor or referral to cardiology if having recurrent episodes of palpitations. No acute arrhythmias seen on her telemetry here. Departure - Departure Disposition: 01 Home, Self Care Clinical Impression: Atypical chest pain Condition: Good Instructions: ED Chest Pain Atypical Unkn Cause Comments: We completed a cardiac workup here which was reassuring. Please follow up with your primary doctor in the next week. Return to the ER if you have new or worsening symptoms. Discharge Date/Time: 02/22/21 16:22
[2021-02-22 16:03] VITALS: BP 114/70
== END 2021-02-22 16:22 | disposition home or self-care (01) ==
LOC: ED 12:39
DX: R07.89 Other chest pain (principal)
CPT/HCPCS: 36415; 80053; 83690; 83880; 84484; 85025; 93005; 99283; 99284

== ENCOUNTER 2021-06-07 09:01 | Outpatient (CLI) | payer OTHER | END 2021-06-07 09:02 | disposition home or self-care (01) | LOC: DI 09:01 | PROVIDERS: ATTEND Family Medicine | DX: I49.9 Cardiac arrhythmia, unspecified (principal); I51.7 Cardiomegaly | CPT/HCPCS: 93306 ==

== ENCOUNTER 2021-06-14 09:38 | Outpatient (CLI) | payer OTHER ==
--- NOTE | 2021-06-14 11:01 | XRAY Report ---
PROCEDURE: Foot 3 View RT INDICATIONS: PAINFUL 1ST MP,JOINT RT TECHNIQUE: 3 views of the foot were acquired. COMPARISON: None FINDINGS: Bones: No fractures or dislocations. No suspicious bony lesions. Joint space narrowing and periart icular osteophyte formation at the first metatarsophalangeal joint. Osteotomy of the proximal first m etatarsal. Soft tissues: No tibiotalar joint effusion. Achilles tendon appears normal. IMPRESSION: 1. Post surgical sequelae. 2. Osteoarthritis. Reviewed by: Leroy Jones MD on 06/14/2021 11:00 AM [facility] Approved by: Leroy Jones MD on 06/14/2021 11:00 AM [facility] Station ID: [id number]
== END 2021-06-14 09:39 | disposition home or self-care (01) ==
LOC: DI 09:38
PROVIDERS: ATTEND Podiatrist
DX: M19.071 Primary osteoarthritis, right ankle and foot (principal)

== ENCOUNTER 2021-08-02 16:27 | Outpatient (CLI) | payer MEDICARE ==
--- NOTE | 2021-08-02 17:37 | XRAY Report ---
PROCEDURE: Knee 4 View LT INDICATIONS: EFFUSION OF LEFT KNEE TECHNIQUE: 3 views of the left: knee(s) were acquired. COMPARISON: None. FINDINGS: Bones: Normal bone mineralization. No fracture. Medial compartmental joint space narrowing. There is a 1.8 x 0.8 cm ovoid calcification just medial to the medial femoral condyle soft tissues noted. No j oint effusion. Mild patellofemoral joint space narrowing. IMPRESSION: 1. Ovoid soft tissue calcification medial to the medial femoral condyle may reflect intra-articular l oose body or sequelae of prior trauma at the medial collateral ligament origin. 2. Mild medial compartmental joint space narrowing Reviewed by: Mario Snyder MD on 08/02/2021 4:35 PM [facility] Approved by: Mario Snyder MD on 08/02/2021 4:35 PM [facility] Station ID: [id number]
== END 2021-08-02 16:28 | disposition home or self-care (01) ==
LOC: DI 16:27
PROVIDERS: ATTEND Family Medicine
DX: M17.12 Unilateral primary osteoarthritis, left knee (principal); R93.6 Abnormal findings on diagnostic imaging of limbs

== ENCOUNTER 2022-03-13 08:38 | Outpatient (CLI) | payer MEDICARE ==
[2022-03-13 08:50] LABS: BASOPHILS % (AUTO) 0.6 %; EOSINOPHILS # (AUTO) 0.3 10^3/uL (0.0-0.7); EOSINOPHILS % (AUTO) 4.9 %; HCT - HEMATOCRIT 41.1 % (37.0-47.0); HGB - HEMOGLOBIN 13.1 g/dL (12.0-16.0); LYMPHOCYTES # (AUTO) 1.8 10^3/uL (1.5-3.5); LYMPHOCYTES % (AUTO) 27.9 %; MEAN CORPUSCULAR HEMOGLOBIN 29.4 pg (27.0-31.0); MEAN CORPUSCULAR HGB CONC 31.9 g/dL (32.0-36.0); MEAN CORPUSCULAR VOLUME 92.2 fL (81.0-99.0); MEAN PLATELET VOLUME 10.1 fL (7.9-10.8); MONOCYTES # (AUTO) 0.5 10^3/uL (0.0-1.0); MONOCYTES % (AUTO) 7.7 %; NEUTROPHILS # (AUTO) 3.8 10^3/uL (1.5-6.6); NEUTROPHILS % (AUTO) 58.7 %; PLT - PLATELET COUNT 196 10^3/uL (130-450); RED BLOOD COUNT 4.46 10^6/uL (4.20-5.40); RED CELL DISTRIBUTION WIDTH 13.4 % (12.0-15.0); WHITE BLOOD COUNT 6.5 x10^3/uL (4.8-10.8)
[2022-03-13 09:11] LABS: ALBUMIN 4.3 g/dL (3.2-5.5); ALBUMIN/GLOBULIN RATIO 1.5 (1.0-2.2); ALKALINE PHOSPHATASE 65 IU/L (42-121); ALT ALANINE AMINOTRANSFERASE 21 IU/L (10-60); AST ASPARTATE AMINOTRANSFERASE 26 IU/L (10-42); BILIRUBIN,TOTAL 0.5 mg/dL (0.2-1.0); BUN - BLOOD UREA NITROGEN 16 mg/dL (6-20); CALCIUM 9.3 mg/dL (8.5-10.3); CARBON DIOXIDE - CO2 27 mmol/L (21-32); CHLORIDE 105 mmol/L (101-111); CHOL/HDL RATIO 2.5 (<4.4); CHOLESTEROL 149 mg/dL; CREATININE 0.8 mg/dL (0.4-1.0); GFR - MDRD 70 (>89); GLUCOSE 96 mg/dL (70-100); HDL CHOLESTEROL 60 mg/dL; LDL CHOLESTEROL,CALCULATED 79 mg/dL; LDL/HDL RATIO 1.3 (<4.4); POTASSIUM 4.3 mmol/L (3.5-5.0); SODIUM 141 mmol/L (135-145); TOTAL PROTEIN 7.2 g/dL (6.7-8.2); TRIGLYCERIDES 51 mg/dL; VLDL CHOLESTEROL 10 mg/dL
[2022-03-13 09:24] LABS: THYROID STIMULATING HORMONE 1.81 uIU/mL (0.34-5.60)
[2022-03-13 09:25] LABS: FREE T3 3.06 pg/mL (2.5-3.9)
[2022-03-13 09:26] LABS: FREE T4 (FREE THYROXINE) 0.67 ng/dL (0.58-1.64)
[2022-03-13 11:24] LABS: ESTIMATED AVERAGE GLUCOSE 108 mg/dL (70-100); HEMOGLOBIN A1c% 5.4 % (4.27-6.07)
== END 2022-03-13 08:39 | disposition home or self-care (01) ==
LOC: LAB 08:38
PROVIDERS: ATTEND Family Medicine
DX: I49.9 Cardiac arrhythmia, unspecified (principal); G45.9 Transient cerebral ischemic attack, unspecified; F41.1 Generalized anxiety disorder; E78.5 Hyperlipidemia, unspecified; E03.9 Hypothyroidism, unspecified
CPT/HCPCS: 36415; 80053; 80061; 83036; 83721; 84439; 84443; 84481; 85025

== ENCOUNTER 2022-05-20 16:48 | Emergency (ER) | payer MEDICARE ==
[2022-05-20 17:02] VITALS: BP 146/68
== END 2022-05-20 17:39 | disposition left against medical advice (07) ==
LOC: ED 16:48
DX: Z53.21 Procedure and treatment not carried out due to patient leaving prior to being seen by health care provider (principal)

== ENCOUNTER 2022-05-21 13:59 | Emergency (ER) | payer MEDICARE ==
--- NOTE | 2022-05-21 15:11 | CT Report ---
PROCEDURE: HEAD WO INDICATIONS: fall TECHNIQUE: Noncontrast 4.5 mm thick angled axial sections acquired from the foramen magnum to the vertex. For r adiation dose reduction, the following was used: automated exposure control, adjustment of mA and/or kV according to patient size. COMPARISON: None. FINDINGS: Image quality: Excellent. CSF spaces: Basal cisterns are patent. No extra-axial fluid collections. Ventricles are normal in size and shape. Brain: No midline shift. No intracranial masses or hemorrhage. Fabian-white matter interface is norm al. Skull and face: Calvarium and visualized facial bones are intact, without suspicious lesions. Sinuses: Visualized sinuses and mastoids are clear. IMPRESSION: No evidence acute intracranial abnormality. Reviewed by: Richard Lovelace MD on 05/21/2022 3:09 PM PST Approved by: Richard Lovelace MD on 05/21/2022 3:09 PM [facility] Station ID: [id number]
--- NOTE | 2022-05-21 15:12 | CT Report ---
PROCEDURE: MAXILLOFACIAL WO INDICATIONS: fall TECHNIQUE: Noncontrast 1.5 mm thick axial images acquired from the mandible through the frontal sinuses, with co jhony and sagittal reformatting. For radiation dose reduction, the following was used: automated ex posure control, adjustment of mA and/or kV according to patient size. COMPARISON: None. FINDINGS: Image quality: Excellent. Bones and teeth: Orbital bradley are intact. Sinus bradley show no fracture or deformity. Nasal bones and septum are intact. Visualized portions of the mandible demonstrate no fractures or subluxation. Zygomatic arches are intact. Pterygoid plates are intact. Visualized portions of the skull base an d auditory canals are intact. Sinuses: Paranasal sinuses are aerated, without fluid levels, mucosal thickening, or mucoceles. Mas toid air cells are aerated. Soft tissues: No edema, masses, or fluid collections. No enlarged lymph nodes. No soft tissue lace rations or debris. Vascular: Visualized vascular structures appear normal in the absence of contrast. Bony vascular fo ramina and canals are intact. IMPRESSION: No evidence of displaced facial bone fracture or mandibular fracture. Reviewed by: Richard Lovelace MD on 05/21/2022 3:11 PM PST Approved by: Richard Lovelace MD on 05/21/2022 3:11 PM PST Station ID: [id number]
[2022-05-21 16:25] VITALS: BP 125/72
--- NOTE | 2022-05-21 17:11 | ED Physician Documentation ---
PD HPI HEAD INJURY - Stated complaint Stated Complaint: GLF/HEAD INJ - Chief complaint Chief Complaint: Trauma Hd/Nk - History obtained from History obtained from: Patient - Additional information Additional information: Patient is a 76-year-old female presenting for evaluation of a head injury that occurred yesterday afternoon. She was in the [employer] parking lot and took a misstep and fell forward. She denies LOC. She did hit her head and her face. She does not take a blood thinner. She did come to the emergency department yesterday evening but left prior to being evaluated. She denies severe headache, nausea, blurred vision, focal weakness.Her teeth feel like they are aligned properly.She denies pain to her extremities. Review of Systems Constitutional: denies: Fever Cardiac: denies: Chest pain / pressure Respiratory: denies: Dyspnea GI: denies: Abdominal Pain : denies: Dysuria Musculoskeletal: denies: Back pain, Extremity pain Neurologic: reports: Head injury. 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 HEENT: Cataracts, Tonsil/Adenoidectomy - Present Medications Home Medications: Ambulatory Orders Medication Instructions Recorded Confirmed Lorazepam [Ativan] 3 mg PO DAILY 03/20/14 06/07/19 Sertraline [Zoloft] 300 mg PO DAILY 03/20/14 06/07/19 Zaleplon 20 mg PO QPM 03/20/14 08/02/16 Buspirone HCl 15 mg PO BID 11/27/14 08/02/16 ARIPiprazole [Abilify] 5 mg PO DAILY 07/31/16 08/02/16 C-Ketotifen 1 mg PO BID PRN 07/31/16 08/02/16 Celecoxib [Celebrex] 200 mg PO DAILY 07/31/16 08/02/16 Imipramine HCl 150 mg PO DAILY 07/31/16 08/02/16 Thyroid [[place] Thyroid] 65 mg PO DAILY 07/31/16 08/02/16 Morphine Ir [Ms Ir] 15 mg PO Q6H PRN #30 tablet 08/02/16 ondansetron HCL [Zofran] 4 mg PO Q6H PRN #20 tablet 08/02/16 traMADol [Ultram] 50 mg PO Q4-6H 08/02/16 08/02/16 - Allergies Allergies/Adverse Reactions: Allergies Allergy/AdvReac Type Severity Reaction Status Date / Time Penicillins Allergy Intermediate Rash Verified 05/21/22 14:08 hydrocodone AdvReac Severe Stomach Verified 05/21/22 14:08 pain oxycodone HCl * AdvReac Severe Stomach Verified 05/21/22 14:08 [From Percocet] pain - Social History Does the pt smoke?: No Smoking Status: Never smoker Does the pt drink ETOH?: Yes Does the pt have substance abuse?: No - Immunizations Immunizations are current?: Yes - POLST Patient has POLST: Yes PD ED PE NORMAL - General General: Alert and oriented X 3, No acute distress, Well developed/nourished - HEENT HEENT: PERRL, EOMI, Moist mucous membranes, Pharynx benign, Other (Contusion to right forehead, nose, upper lip) - Neck Neck: Supple, no meningeal sign, No bony TTP, C-Spine cleared by NEXUS criteria - Cardiac Cardiac: RRR, No murmur - Respiratory Respiratory: No respiratory distress, Clear bilaterally - Abdomen Abdomen: Soft, Non tender - Derm Derm: Warm and dry - Extremities Extremities: No tenderness to palpate - Neuro Neuro: Alert and oriented X 3, house officer 2-12 intact, No motor deficit, No sensory deficit, Normal speech Eye Opening: Spontaneous Motor: Obeys Commands Verbal: Oriented GCS Score: 15 Results - Vitals Vitals: Vital Signs - 24 hr 05/21/22 05/21/22 14:03 16:24 Temperature 36.5 C Heart Rate 83 73 Respiratory 16 14 Rate Blood Pressure 110/59 L 125/72 O2 Saturation 97 99 Oxygen O2 Source [With Activity] Room air O2 Source Room air PD Medical Decision Making - ED course Complexity details: reviewed results, re-evaluated patient, d/w patient ED course: Patient is a 76-year-old presenting for evaluation after ground level fall yesterday that appears to be mechanical in nature. No prodromal symptoms to suggest presyncope As cause of her fall. Patient has a normal neuro exam. Her C-spine is cleared by Nexus criteria. Her CT head and maxillofacial are unremarkable With no signs of bleed or bony injury. Dentition is intact. She is ambulatory. Patient counseled on continuing with supportive care as well as concerning symptoms to return for. Departure - Departure Disposition: 01 Home, Self Care Clinical Impression: Head injury, Facial contusion Condition: Stable Instructions: ED Contusion Face, ED Head Injury Closed Comments: Your CT scans do not show any broken bones or internal bleeding. Please continue with ice and Tylenol for any areas of pain. If you have any new or worsening symptoms please consider return to the emergency department. Discharge Date/Time: 05/21/22 17:12
== END 2022-05-21 17:12 | disposition home or self-care (01) ==
LOC: ED 13:59
DX: S09.90XA Unspecified injury of head, initial encounter (principal); S00.83XA Contusion of other part of head, initial encounter; W18.30XA Fall on same level, unspecified, initial encounter; Y93.01 Activity, walking, marching and hiking; Y92.481 Parking lot as the place of occurrence of the external cause
CPT/HCPCS: 99283; 99284

== ENCOUNTER 2022-06-03 13:34 | Outpatient (CLI) | payer MEDICARE ==
--- NOTE | 2022-06-04 11:26 | Mammography Report ---
BILATERAL DIGITAL SCREENING MAMMOGRAM 3D/2D: 06/03/2022 CLINICAL: Routine screening. Comparison is made to exams dated: 10/24/2019 mammogram, 05/26/2018 mammogram, and 10/09/2016 mammogram - [facility]. Both breasts are heterogeneously dense, which may obscure small masses (category c / 51-75% glandular tissue). No significant masses, calcifications, or other findings are seen in either breast. There has been no significant interval change. IMPRESSION: NEGATIVE There is no mammographic evidence of malignancy. A 1 year screening mammogram is recommended. Based on the Tyrer Cuzick model (a risk assessment model) the patients lifetime risk is 6.3% and her 10 year risk is 0.0%. According to the ACR, ACS, and NCCN guidelines, an annual breast MRI exam jose luis g with mammogram is recommended if the patients lifetime risk is 20% or greater. This exam was interpreted at Station ID: [id number]. NOTE: For mammograms, a report in lay terms will be sent to the patient. Approximately 15% of breast malignancies will not be visualized mammographically. In the management of a palpable breast mass, a negative mammogram must not discourage biopsy of a clinically suspicious lesion. Electronically Signed By: Nirmal webster/joesph:06/03/2022 17:06:24 ACR BI-RADS Category 1: Negative 3341F PARENCHYMAL PATTERN: (D) - The breast(s) demonstrate(s) heterogeneously dense fibroglandular mary juan. BI-RADS CATEGORY: (1) - 1 RECOMMENDATION: (ANNUAL) - Recommend routine annual screening mammography. [id number] 1 year screening LATERALITY: (B)
== END 2022-06-03 13:35 | disposition home or self-care (01) ==
LOC: DI 13:34
DX: Z12.31 Encounter for screening mammogram for malignant neoplasm of breast (principal)

== ENCOUNTER 2022-06-03 13:35 | Outpatient (CLI) | payer MEDICARE ==
--- NOTE | 2022-06-03 15:05 | DEXA Report ---
PROCEDURE: Dexa Spine and/or Hip INDICATIONS: POST MENOPAUSAL TECHNIQUE: Dual energy x-ray absorptiometry (DXA) was performed on a [employer] System. Regions measur ed are the AP Spine, femoral neck, and if needed forearm. COMPARISON: DEXA 01/12/2019 FINDINGS: Lumbar Spine: Bone Mineral Density 0.980 g/cm/cm,T score -1.7, not significantly changed when compared to the ex am from 01/12/2019. Left Femoral Neck: Bone Mineral Density 0.721 g/cm/cm, T score -2.3. Left Hip: Bone Mineral Density 0.781 g/cm/cm,T score -1.8, increased by 4.7% when compared to the exam from 03/2019. (T score greater or equal to -1.0: NORMAL) (T score from -1.1 to -2.4: OSTEOPENIA) (T score less than or equal to -2.5 to: OSTEOPOROSIS) Impression: Bone mineral density within the osteopenia range at the lumbar spine and left hip. Bone mineral densi ty has significantly increased at the left hip when compared to the exam from 01/12/2019. Patients with diagnosis of osteoporosis or osteopenia should have regular bone mineral density assess ment. For those eligible for Medicare, routine testing is allowed once every 2 years. Testing frequ ency can be increased for patients who have rapidly progressing disease or for those who are receivin g medical therapy to restore bone mass. Reviewed by: George Tovar MD on 06/03/2022 3:04 PM PST Approved by: George Tovar MD on 06/03/2022 3:04 PM PST Station ID: [id number]
== END 2022-06-03 13:36 | disposition home or self-care (01) ==
LOC: DI 13:35
PROVIDERS: ATTEND Family Medicine
DX: M85.89 Other specified disorders of bone density and structure, multiple sites (principal); Z78.0 Asymptomatic menopausal state

== ENCOUNTER 2022-08-14 14:05 | Emergency (ER) | payer MEDICARE ==
[2022-08-14] MEDS ORDERED: SODIUM CHLORIDE 0.9% 1,000 ML IV STA (14:37)
[2022-08-14 14:45] LABS: BASOPHILS % (AUTO) 0.2 %; EOSINOPHILS % (AUTO) 0.2 %; HGB - HEMOGLOBIN 13.4 g/dL (12.0-16.0); LYMPHOCYTES # (AUTO) 1.5 10^3/uL (1.5-3.5); LYMPHOCYTES % (AUTO) 11.3 %; MEAN CORPUSCULAR HGB CONC 33.5 g/dL (32.0-36.0); MEAN CORPUSCULAR VOLUME 89.7 fL (81.0-99.0); MEAN PLATELET VOLUME 10.3 fL (7.9-10.8); MONOCYTES % (AUTO) 7.1 %; NEUTROPHILS # (AUTO) 10.8 10^3/uL (1.5-6.6); NEUTROPHILS % (AUTO) 80.8 %; PLT - PLATELET COUNT 197 10^3/uL (130-450); RED BLOOD COUNT 4.46 10^6/uL (4.20-5.40); RED CELL DISTRIBUTION WIDTH 13.4 % (12.0-15.0); WHITE BLOOD COUNT 13.3 x10^3/uL (4.8-10.8)
[2022-08-14 15:04] LABS: ALBUMIN 4.3 g/dL (3.2-5.5); BILIRUBIN,TOTAL 0.6 mg/dL (0.2-1.0); CALCIUM 9.2 mg/dL (8.5-10.3); CREATININE 0.8 mg/dL (0.4-1.0); MAGNESIUM 1.9 mg/dL (1.7-2.8); POTASSIUM 3.4 mmol/L (3.5-5.0); TOTAL PROTEIN 7.1 g/dL (6.7-8.2)
[2022-08-14 15:05] LABS: ALBUMIN/GLOBULIN RATIO 1.5 (1.0-2.2)
--- NOTE | 2022-08-14 15:28 | ED Physician Documentation ---
PD HPI ALTERED MENTAL STATUS - Stated complaint Stated Complaint: VOMITING/DAZED - Chief complaint Chief Complaint: Neuro - History obtained from History obtained from: Patient, Family - History of Present Illness Timing - onset: Last night Timing - duration: Hours Timing - details: Abrupt onset, Now resolved Quality / character: Confused, Other (difficulty speaking) Associated symptoms: General weakness Contributing factors: Recent illness (vomiting acutely) Basline status: Alert and oriented X 3, Ambulatory, Independent Similar symptoms before: Has not had sx before Recently seen: Not recently seen - Additional information Additional information: 76-year-old Gayatri Mari indicates that she went to bed last night vomiting and vomited all night long. She felt that she had some abdominal discomfort associated with this and felt that she had food poisoning. Her symptoms have resolved completely she is no longer nauseous. She called her daughter this morning and her daughter became concerned when her mother was unable to speak adequately. The patient states that her speech is now some improved and the daughter confirms this. Patient does not feel otherwise ill. She denies any lateralization of findings. Review of Systems Constitutional: denies: Fever Eyes: denies: Decreased vision Ears: denies: Ear pain Nose: denies: Rhinorrhea / runny nose, Congestion Throat: denies: Sore throat Cardiac: denies: Chest pain / pressure, Palpitations Respiratory: denies: Dyspnea, Cough GI: reports: Abdominal Pain (resolved), Nausea (resolved), Vomiting (resolved) : denies: Dysuria, Frequency Skin: denies: Rash Musculoskeletal: denies: Neck pain, Back pain, Extremity pain Neurologic: reports: Generalized weakness, Difficulty speaking, Confused. 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 HEENT: Cataracts, Tonsil/Adenoidectomy - Present Medications Home Medications: Ambulatory Orders Medication Instructions Recorded Confirmed Lorazepam [Ativan] 3 mg PO DAILY 03/20/14 06/07/19 Sertraline [Zoloft] 300 mg PO DAILY 03/20/14 06/07/19 Zaleplon 20 mg PO QPM 03/20/14 08/02/16 Buspirone HCl 15 mg PO BID 11/27/14 08/02/16 ARIPiprazole [Abilify] 5 mg PO DAILY 07/31/16 08/02/16 C-Ketotifen 1 mg PO BID PRN 07/31/16 08/02/16 Celecoxib [Celebrex] 200 mg PO DAILY 07/31/16 08/02/16 Imipramine HCl 150 mg PO DAILY 07/31/16 08/02/16 Thyroid [[place] Thyroid] 65 mg PO DAILY 07/31/16 08/02/16 Morphine Ir [Ms Ir] 15 mg PO Q6H PRN #30 tablet 08/02/16 ondansetron HCL [Zofran] 4 mg PO Q6H PRN #20 tablet 08/02/16 traMADol [Ultram] 50 mg PO Q4-6H 08/02/16 08/02/16 - Allergies Allergies/Adverse Reactions: Allergies Allergy/AdvReac Type Severity Reaction Status Date / Time Penicillins Allergy Intermediate Rash Verified 08/14/22 14:15 hydrocodone AdvReac Severe Stomach Verified 08/14/22 14:15 pain oxycodone HCl * AdvReac Severe Stomach Verified 08/14/22 14:15 [From Percocet] pain - Social History Does the pt smoke?: No Smoking Status: Never smoker Does the pt drink ETOH?: Yes Does the pt have substance abuse?: No - Immunizations Immunizations are current?: Yes - POLST Patient has POLST: Yes PD ED PE NORMAL - Vitals Vital signs reviewed: Yes - General General: Alert and oriented X 3, No acute distress, Well developed/nourished - HEENT HEENT: Atraumatic, PERRL, EOMI, Other (parched mucous membranes ) - Neck Neck: Supple, no meningeal sign, No bony TTP - Cardiac Cardiac: RRR, No murmur - Respiratory Respiratory: No respiratory distress, Clear bilaterally - Abdomen Abdomen: Normal bowel sounds, Soft, Non tender, Non distended, No organomegaly - Back Back: No CVA TTP, No spinal TTP - Derm Derm: Normal color, Warm and dry, No rash - Extremities Extremities: No deformity, No edema - Neuro Neuro: Alert and oriented X 3, 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, No motor deficit, No sensory deficit, Normal speech Eye Opening: Spontaneous Motor: Obeys Commands Verbal: Oriented GCS Score: 15 - Psych Psych: Normal mood, Normal affect Results - Vitals Vitals: Vital Signs - 24 hr 08/14/22 08/14/22 08/14/22 14:15 14:40 15:00 Temperature 36.5 C Heart Rate 97 88 76 Respiratory 16 18 15 Rate Blood Pressure 112/60 108/56 L 108/56 L O2 Saturation 96 95 96 08/14/22 08/14/22 15:32 16:09 Temperature Heart Rate 80 86 Respiratory 19 22 Rate Blood Pressure 114/56 L 123/64 O2 Saturation 97 97 Oxygen O2 Source [] Room air O2 Source Room air - Labs Labs: Laboratory Tests 08/14/22 08/14/22 08/14/22 14:38 14:38 15:53 WBC 13.3 H RBC 4.46 Hgb 13.4 Hct 40.0 MCV 89.7 MCH 30.0 MCHC 33.5 RDW 13.4 Plt Count 197 MPV 10.3 Neut # (Auto) 10.8 H Lymph # (Auto) 1.5 [place] # (Auto) 1.0 Eos # (Auto) 0.0 Baso # (Auto) 0.0 Absolute Nucleated RBC 0.00 Nucleated RBC % 0.0 Sodium 136 Potassium 3.4 L Chloride 103 Carbon Dioxide 25 Anion Gap 8.0 BUN 19 Creatinine 0.8 Estimated GFR (MDRD) 70 L Glucose 110 H Calcium 9.2 Magnesium 1.9 Total Bilirubin 0.6 AST 20 ALT 18 Alkaline Phosphatase 65 Total Protein 7.1 Albumin 4.3 Globulin 2.8 Albumin/Globulin Ratio 1.5 Lipase 27 Urine Color YELLOW Urine Clarity CLEAR Urine pH 6.5 Ur Specific [place] <=1.005 Urine Protein NEGATIVE Urine Glucose (UA) NEGATIVE Urine Ketones NEGATIVE Urine Occult Blood NEGATIVE Urine Nitrite NEGATIVE Urine Bilirubin NEGATIVE Urine Urobilinogen 0.2 (NORMAL) Ur Leukocyte Esterase NEGATIVE Ur Microscopic Review NOT INDICATED Urine Culture Comments NOT INDICATED Procedures - IVC sono (time) 1430 Bedside IVC sono: IVC measures (cm) (0.72), Significant dehydration (est 2-3 liter deficit) PD Medical Decision Making - ED course Complexity details: reviewed old records, reviewed results, re-evaluated patient, considered differential, d/w patient, d/w family Reviewed Lab Results: We reviewed a complete blood count showing an elevated white blood cell count of 13.3 with normal hemoglobin hematocrit and platelets. Chemistry showed normal electrolytes with the exception of potassium low at 3.4 there is normal kidney and liver function urinalysis was unremarkable ED course: 76-year-old female previously well developed what sounds like food poisoning overnight she had an exceptional mild vomiting and when her daughter talked to her in the morning she was not speaking correctly. The patient arrived to the emergency department speaking well but with obvious dehydration. She had a NIH stroke score of 0. She was administered intravenous saline after interrogation of the inferior vena cava with POCUS and she had improvement in her rapidity of speech and movement. Her findings on initial evaluation were subtle. I suspect the daughter may have uncovered dysarthria related to dry mucous membranes. Departure - Departure Disposition: 01 Home, Self Care Clinical Impression: Dehydration, Food poisoning Condition: Stable Instructions: ED Dehydration, ED Gastroenteritis Vs Food Poison Follow-Up: Francisco Berg MD [Primary Care Provider] - Comments: Gayatri, today it looks like you were significantly dehydrated when you arrived to the emergency department. I suspect this is from your overnight vomiting. We were able to hydrate you and the expectation is that you should be normal. Food poisoning is usually a brief illness and dehydration is the part that gives the most problems. We are not expecting further vomiting and we are not expecting confusion, weakness or difficulty speaking. If any of these things happen a repeat visit to the emergency department is indicated.
[2022-08-14 16:07] LABS: BILIRUBIN,URINE NEGATIVE (NEGATIVE); GLUCOSE, URINE (UA) NEGATIVE (NEGATIVE); KETONES,URINE (UA) NEGATIVE (NEGATIVE); LEUKOCYTE ESTERASE, URINE NEGATIVE (NEGATIVE); NITRITE,URINE NEGATIVE (NEGATIVE); OCCULT BLOOD,URINE NEGATIVE (NEGATIVE); PH,URINE 6.5 PH (5.0-7.5); PROTEIN,URINE NEGATIVE (NEGATIVE); UROBILINOGEN,URINE 0.2 (NORMAL) E.U./dL (NORMAL)
[2022-08-14 16:08] LABS: CLARITY,URINE CLEAR (CLEAR)
[2022-08-14 16:41] VITALS: BP 116/56
== END 2022-08-14 17:02 | disposition home or self-care (01) ==
LOC: ED 14:05
DX: A05.9 Bacterial foodborne intoxication, unspecified (principal); E86.0 Dehydration
CPT/HCPCS: 36415; 80053; 81001; 81003; 83690; 83735; 85025; 87086; 96360; 99283

== ENCOUNTER 2022-08-15 06:04 | Outpatient (CLI) | payer MEDICARE | END 2022-08-15 06:05 | disposition critical access hospital (66) | LOC: EMS 06:04 | DX: R19.7 Diarrhea, unspecified (principal); R11.0 Nausea; R42 Dizziness and giddiness | CPT/HCPCS: A0425; A0429 ==

== ENCOUNTER 2022-08-15 06:10 | Emergency (ER) | payer MEDICARE ==
[2022-08-15 06:42] LABS: BASOPHILS # (AUTO) 0.1 10^3/uL (0.0-0.1); BASOPHILS % (AUTO) 0.4 %; EOSINOPHILS # (AUTO) 0.1 10^3/uL (0.0-0.7); HCT - HEMATOCRIT 35.9 % (37.0-47.0); HGB - HEMOGLOBIN 11.9 g/dL (12.0-16.0); LYMPHOCYTES # (AUTO) 1.2 10^3/uL (1.5-3.5); LYMPHOCYTES % (AUTO) 10.4 %; MEAN CORPUSCULAR HEMOGLOBIN 30.4 pg (27.0-31.0); MEAN CORPUSCULAR HGB CONC 33.1 g/dL (32.0-36.0); MEAN CORPUSCULAR VOLUME 91.6 fL (81.0-99.0); MEAN PLATELET VOLUME 10.4 fL (7.9-10.8); MONOCYTES # (AUTO) 0.8 10^3/uL (0.0-1.0); MONOCYTES % (AUTO) 7.2 %; NEUTROPHILS # (AUTO) 9.2 10^3/uL (1.5-6.6); NEUTROPHILS % (AUTO) 80.7 %; PLT - PLATELET COUNT 157 10^3/uL (130-450); RED BLOOD COUNT 3.92 10^6/uL (4.20-5.40); RED CELL DISTRIBUTION WIDTH 13.7 % (12.0-15.0); WHITE BLOOD COUNT 11.5 x10^3/uL (4.8-10.8)
[2022-08-15] MEDS ORDERED: ONDANSETRON 4 MG/2 ML VIAL IVP STA (06:48)
[2022-08-15 06:56] LABS: ALBUMIN 3.5 g/dL (3.2-5.5); ALBUMIN/GLOBULIN RATIO 1.5 (1.0-2.2); BILIRUBIN,TOTAL 0.5 mg/dL (0.2-1.0); CALCIUM 8.5 mg/dL (8.5-10.3); CREATININE 0.6 mg/dL (0.4-1.0); POTASSIUM 3.3 mmol/L (3.5-5.0); TOTAL PROTEIN 5.9 g/dL (6.7-8.2)
[2022-08-15] MEDS ORDERED: SODIUM CHLORIDE 0.9% 1,000 ML IV STA (07:57)
--- NOTE | 2022-08-15 08:01 | ED Physician Documentation ---
PD HPI NVD - Stated complaint Stated Complaint: ABD PX - Chief complaint Chief Complaint: Abd Pain - History obtained from History obtained from: Patient, Friend - Additonal information Additional information: The patient returns to the emergency department with chief complaint of vomiting, diarrhea, lower abdominal pain, and now, blood in the stool, for the last 2 days. She was seen here yesterday for similar complaints although she was not having blood in her stool at that time. She was found to have a mildly elevated white count and to be dehydrated and was aggressively hydrated in the emergency department. Patient left feeling better, but states that overnight, she began to have more episodes of diarrhea, starting around 3:00 this morning. She does note that the diarrhea has gone from watery to a little more formed so that is an improvement, and also states that she has not vomited since yesterday. However, she noticed some bright red blood on the toilet paper and in the toilet bowl and was concerned. She states she around the time of the diarrhea restarting noticed a deep cramp across her low abdomen. The patient states that the symptoms started 2 nights ago after eating some dock at a restaurant in [place]. She noted that the dock was cold in the middle and was concerned that it was not cooked well enough and sent back to be cooked better. Her friend, who is accompanied her, states that they had not gotten all the way back to would be when the patient started vomiting. The patient has been able to hold water and some saltine crackers down since being seen in the emergency department yesterday, but has had a lingering sense of nausea. She was diagnosed with gastroenteritis yesterday and advised that this will be a self-limited illness, but remains concerned about her symptoms. She denies any fevers or chills. No underlying abdominal conditions or surgeries. She is not anticoagulated. 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 HEENT: Cataracts, Tonsil/Adenoidectomy - Present Medications Home Medications: Ambulatory Orders Medication Instructions Recorded Confirmed Lorazepam [Ativan] 3 mg PO DAILY 03/20/14 06/07/19 Sertraline [Zoloft] 300 mg PO DAILY 03/20/14 06/07/19 Zaleplon 20 mg PO QPM 03/20/14 08/02/16 Buspirone HCl 15 mg PO BID 11/27/14 08/02/16 ARIPiprazole [Abilify] 5 mg PO DAILY 07/31/16 08/02/16 C-Ketotifen 1 mg PO BID PRN 07/31/16 08/02/16 Celecoxib [Celebrex] 200 mg PO DAILY 07/31/16 08/02/16 Imipramine HCl 150 mg PO DAILY 07/31/16 08/02/16 Thyroid [[place] Thyroid] 65 mg PO DAILY 07/31/16 08/02/16 Morphine Ir [Ms Ir] 15 mg PO Q6H PRN #30 tablet 08/02/16 ondansetron HCL [Zofran] 4 mg PO Q6H PRN #20 tablet 08/02/16 traMADol [Ultram] 50 mg PO Q4-6H 08/02/16 08/02/16 Ondansetron Odt [Zofran] 4 mg TL Q6H PRN #10 tablet 08/15/22 - Allergies Allergies/Adverse Reactions: Allergies Allergy/AdvReac Type Severity Reaction Status Date / Time Penicillins Allergy Intermediate Rash Verified 08/14/22 14:15 hydrocodone AdvReac Severe Stomach Verified 08/14/22 14:15 pain oxycodone HCl * AdvReac Severe Stomach Verified 08/14/22 14:15 [From Percocet] pain - Social History Does the pt smoke?: No Smoking Status: Never smoker Does the pt drink ETOH?: Yes Does the pt have substance abuse?: No - Immunizations Immunizations are current?: Yes - POLST Patient has POLST: Yes PD ED PE NORMAL - Vitals Vital signs reviewed: Yes - General General: Alert and oriented X 3, No acute distress, Well developed/nourished - HEENT HEENT: Atraumatic, PERRL, EOMI, Moist mucous membranes - Neck Neck: Supple, no meningeal sign - Cardiac Cardiac: RRR, No murmur - Respiratory Respiratory: No respiratory distress, Clear bilaterally - Abdomen Abdomen: Soft, Non distended, Other (Moderate superiormost epigastric tenderness, no rebound or guarding. No lower abdominal tenderness.) - Rectal Rectal: Other (Mild bloody residue, dry, about anus and medial most glutes surrounding the anus. No external hemorrhoids. No mass on digital rectal exam. No bright red blood or melena. Stool is brownish and soft.) - Derm Derm: Warm and dry - Extremities Extremities: No deformity - Neuro Neuro: Alert and oriented X 3 - Psych Psych: Normal mood, Normal affect Results - Vitals Vitals: Oxygen O2 Source [With Activity] Room air O2 Source Room air - Labs Labs: Laboratory Tests 08/15/22 08/15/22 08/15/22 06:36 06:36 06:36 WBC 11.5 H RBC 3.92 L Hgb 11.9 L Hct 35.9 L MCV 91.6 MCH 30.4 MCHC 33.1 RDW 13.7 Plt Count 157 MPV 10.4 Neut # (Auto) 9.2 H Lymph # (Auto) 1.2 L Long # (Auto) 0.8 Eos # (Auto) 0.1 Baso # (Auto) 0.1 Absolute Nucleated RBC 0.00 Nucleated RBC % 0.0 Sodium 138 Potassium 3.3 L Chloride 105 Carbon Dioxide 24 Anion Gap 9.0 BUN 12 Creatinine 0.6 Estimated GFR (MDRD) 97 Glucose 125 H Calcium 8.5 Total Bilirubin 0.5 AST 15 ALT 15 Alkaline Phosphatase 51 Total Protein 5.9 L Albumin 3.5 Globulin 2.4 Albumin/Globulin Ratio 1.5 Lipase 24 Blood Type O POSITIVE PD Medical Decision Making - ED course Complexity details: reviewed old records, reviewed results, re-evaluated patient, considered differential, d/w patient ED course: The patient was given Zofran, a liter of IV fluids, and reported feeling better. She was worked up with labs which showed improvement of her white count since yesterday. She did have a drop in her hemoglobin from 13.4-11.9 since yesterday, though yesterday's labs were drawn when the patient was quite dehydrated and so it is unclear whether this simply represents the volume expansion by fluids. I discussed with the patient that she does not have any tenderness in her low abdomen and my suspicion for diverticulitis is low. However, the patient has had increase in painful episodes though she is not in much pain right now, and has had a fairly significant drop in her hemoglobin since yesterday although there could be alternate explanations for this. She is back for her second visit within 24 hours and at this point we will go ahead and do a CT scan to evaluate for any more serious underlying condition that could be causing her symptoms. CT showed some enteritis. We have discussed symptomatic management at home and the usual indications for return. Departure - Departure Disposition: 01 Home, Self Care Clinical Impression: Gastroenteritis Condition: Stable Instructions: ED Gastroenteritis Viral Prescriptions: Ondansetron Odt [Zofran] 4 mg TL Q6H PRN #10 tablet PRN Reason: Nausea / Vomiting Comments: Your labs look good today and your CT scan shows inflammation of your large bowel, consistent with the diarrhea you are having. You do not have any evidence of diverticulitis. Additionally, there is no evidence of any other concerning condition. At this point in time, your symptoms are most consistent with a viral gastroenteritis or "stomach flu". This can cause intestinal spasm which can cause pains especially across your low abdomen, and especially before you are about to have a bout of diarrhea. This will resolve as you get over the illness. Additionally, the vomiting can cause some pain and inflammation along the upper stomach and lower esophagus, and is most likely the explanation for the tenderness in your upper abdomen. You should mostly focus on drinking fluids at this time. You can drink plain water or you can drink an electrolyte solution like Pedialyte to help replace some of the electrolytes that are coming out with the diarrhea. You should drink about 10 cups of liquid each day while you are sick to be sure you are adequately hydrating. Your potassium is very slightly low, which is not uncommon with vomiting and diarrhea, and will correct itself once you get back to eating a normal diet. For now, you should stick with simple starches if you are going to eat anything at all. These would include things like saltine crackers, oyster crackers, Ramen noodles, or white rice. Please do not eat anything with dairy, meat, or complex/high fiber content, such as fruits or vegetables, until you are feeling better. You may follow-up with your primary doctor for further concerns. Your prescription for nausea medicine has been electronically transmitted to the [facility] pharmacy in [place]. Other things that are sometimes helpful during the course of gastroenteritis would be charcoal tablets, though you will need to take these at least 2 hours after taking any oral medication, and a probiotic, which can help restore bacterial balance in your intestines after an intestinal illness. You can ask at [facility] if they carry either these things or you can check with a local natural [employer] store or dedicated pharmacy. Discharge Date/Time: 08/15/22 09:57
[2022-08-15] MEDS ORDERED: ACETAMINOPHEN 325 MG TABLET PO STA (08:17)
[2022-08-15] MEDS ORDERED: iohexoL-300 100 ML VIAL ONE (08:19)
[2022-08-15] MEDS ORDERED: iohexoL-300 100 ML VIAL IVP ONE (08:50)
--- NOTE | 2022-08-15 09:01 | CT Report ---
PROCEDURE: ABDOMEN/PELVIS W INDICATIONS: low abd pain, v/d, blood in stool CONTRAST: 100ml omni 300 TECHNIQUE: After the administration of intravenous contrast, 5 mm thick sections acquired from the diaphragms to the symphysis. 5 mm thick coronal and sagittal reformats were acquired. For radiation dose reducti on, the following was used: automated exposure control, adjustment of mA and/or kV according to meliton ent size. COMPARISON: None FINDINGS: Image quality: Excellent. Lung bases and heart: Unremarkable. Liver: Subcentimter hypoattenuating liver lesions, too small to characterize by CT. Gallbladder and biliary tree: Unremarkable. No biliary dilation. Spleen: Unremarkable. Pancreas: Unremarkable. Adrenals: Unremarkable. Kidneys and ureters: Unremarkable. Bowel and peritoneum: Significant wall thickening of the transverse, descending and sigmoid colon, wi th associated pericolonic fat stranding and significant edema within the wall. There is small volume ascites. The appendix is distended, with a thin wall but contains calcifications and low attenuating debris. Lymph nodes: No central or retroperitoneal adenopathy. Vessels: Unremarkable. PELVIS Reproductive organs: Unremarkable. Bladder: Unremarkable. Lymph nodes: Unremarkable. Bones: No aggressive osseous abnormality. Other: None. IMPRESSION: Significant wall thickening of the transverse, descending and sigmoid colon, consistent with colitis. C. difficile is a consideration given extent, less likely inflammatory bowel disease at this age. Is chemic bowel is less likely given no significant atherosclerotic disease and wide patency of the spla nchnic vessels. 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 No evidence o f acute appendicitis. Reviewed by: Jesse Siegel on 08/15/2022 9:00 AM PDT Approved by: Jesse Siegel on 08/15/2022 9:00 AM PDT Station ID: [id number]
[2022-08-15 09:58] VITALS: BP 100/60
== END 2022-08-15 09:57 | disposition home or self-care (01) ==
LOC: EDUNIT# → ED 06:10
DX: K52.9 Noninfective gastroenteritis and colitis, unspecified (principal)
CPT/HCPCS: 36415; 74177; 80053; 83690; 85025; 86900; 86901; 96374; 99283; 99284; A9270; Q9967

== ENCOUNTER 2022-08-16 07:58 | Outpatient (CLI) | payer MEDICARE | END 2022-08-16 23:59 | disposition EMS.NT | LOC: EMS 07:58 | DX: R10.9 Unspecified abdominal pain (principal); R11.2 Nausea with vomiting, unspecified; R19.7 Diarrhea, unspecified; R53.1 Weakness ==

== ENCOUNTER 2023-01-02 14:26 | Outpatient (CLI) | payer MEDICARE ==
[2023-01-02 14:49] LABS: BASOPHILS # (AUTO) 0.1 10^3/uL (0.0-0.1); BASOPHILS % (AUTO) 0.8 %; EOSINOPHILS # (AUTO) 0.3 10^3/uL (0.0-0.7); EOSINOPHILS % (AUTO) 5.1 %; HCT - HEMATOCRIT 38.4 % (37.0-47.0); HGB - HEMOGLOBIN 12.5 g/dL (12.0-16.0); LYMPHOCYTES # (AUTO) 1.8 10^3/uL (1.5-3.5); LYMPHOCYTES % (AUTO) 27.8 %; MEAN CORPUSCULAR HEMOGLOBIN 28.9 pg (27.0-31.0); MEAN CORPUSCULAR HGB CONC 32.6 g/dL (32.0-36.0); MEAN CORPUSCULAR VOLUME 88.7 fL (81.0-99.0); MEAN PLATELET VOLUME 10.1 fL (7.9-10.8); MONOCYTES # (AUTO) 0.6 10^3/uL (0.0-1.0); MONOCYTES % (AUTO) 8.3 %; NEUTROPHILS # (AUTO) 3.8 10^3/uL (1.5-6.6); NEUTROPHILS % (AUTO) 57.8 %; PLT - PLATELET COUNT 202 10^3/uL (130-450); RED BLOOD COUNT 4.33 10^6/uL (4.20-5.40); RED CELL DISTRIBUTION WIDTH 14.5 % (12.0-15.0); WHITE BLOOD COUNT 6.6 x10^3/uL (4.8-10.8)
[2023-01-02 15:03] LABS: ALBUMIN 4.3 g/dL (3.2-5.5); ALBUMIN/GLOBULIN RATIO 1.7 (1.0-2.2); ALKALINE PHOSPHATASE 72 IU/L (42-121); ALT ALANINE AMINOTRANSFERASE 16 IU/L (10-60); AST ASPARTATE AMINOTRANSFERASE 19 IU/L (10-42); BILIRUBIN,TOTAL 0.4 mg/dL (0.2-1.0); BUN - BLOOD UREA NITROGEN 21 mg/dL (6-20); CARBON DIOXIDE - CO2 30 mmol/L (21-32); CHLORIDE 104 mmol/L (101-111); CHOL/HDL RATIO 2.7 (<4.4); CHOLESTEROL 142 mg/dL; CREATININE 0.9 mg/dL (0.6-1.3); GFR - MDRD 61 (>89); GLUCOSE 107 mg/dL (74-104); HDL CHOLESTEROL 52 mg/dL; LDL CHOLESTEROL,CALCULATED 65 mg/dL; LDL/HDL RATIO 1.3 (<4.4); POTASSIUM 4.4 mmol/L (3.5-4.5); SODIUM 139 mmol/L (135-145); TOTAL PROTEIN 6.8 g/dL (6.4-8.9); TRIGLYCERIDES 127 mg/dL (48-352); VLDL CHOLESTEROL 25 mg/dL
[2023-01-02 15:19] LABS: THYROID STIMULATING HORMONE 2.01 uIU/mL (0.34-5.60)
== END 2023-01-02 14:27 | disposition home or self-care (01) ==
LOC: LAB 14:26
PROVIDERS: ATTEND Family Medicine
DX: K21.9 Gastro-esophageal reflux disease without esophagitis (principal); G24.01 Drug induced subacute dyskinesia; F32.9 Major depressive disorder, single episode, unspecified; E03.9 Hypothyroidism, unspecified
CPT/HCPCS: 36415; 80053; 80061; 83721; 84439; 84443; 84481; 85025

== ENCOUNTER 2023-12-02 13:41 | Emergency (ER) | payer MEDICARE, OTHER ==
[2023-12-02 14:04] VITALS: BP 112/54; O2SAT 98
--- NOTE | 2023-12-02 14:44 | ED Physician Documentation ---
History of Present Illness - Stated complaint Stated Complaint: LFT SIDE/BACK PX - Chief complaint Chief Complaint: Back Pain - History obtained from History obtained from: Patient - Additonal information Additional information: Patient is a 77-year-old female presenting to the emergency department with left sided back pain and thoracic back pain. She notes symptoms started last week when she picked up her dog who weighed about 40 pounds she has sudden onset of back pain she took some hydrocodone's that she had for recent dental work and had improvement in pain. However about 2 days ago she had worsening back pain she has been taking Tylenol and ibuprofen and took another codeine shortly prior to coming into the emergency department and continues to have no relief of her symptoms. She notes symptoms improve when she is at rest but when she is up and moving she has severe back pain. She notes symptoms also worsen with movement of bilateral upper extremities. She denies any trauma to the area and no previous history of back surgeries. She denies any numbness tingling weakness in upper or lower extremities. She denies any chest pain or shortness of breath associated with her symptoms. 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 : None HEENT: None Psych: Depression, Anxiety Musculoskeletal: None Derm: None - Past Surgical History Past Surgical History: Yes General: Colonoscopy, EGD Ortho: Rotator cuff repair /BLOW MOLDER: section HEENT: Cataracts, Tonsil/Adenoidectomy - Present Medications Home Medications: Ambulatory Orders Medication Instructions Recorded Confirmed Lorazepam [Ativan] 3 mg PO DAILY 03/20/14 06/07/19 Sertraline [Zoloft] 300 mg PO DAILY 03/20/14 06/07/19 Zaleplon 20 mg PO QPM 03/20/14 08/02/16 Buspirone HCl 15 mg PO BID 11/27/14 08/02/16 ARIPiprazole [Abilify] 5 mg PO DAILY 07/31/16 08/02/16 C-Ketotifen 1 mg PO BID PRN 07/31/16 08/02/16 Celecoxib [Celebrex] 200 mg PO DAILY 07/31/16 08/02/16 Imipramine HCl 150 mg PO DAILY 07/31/16 08/02/16 Thyroid [[place] Thyroid] 65 mg PO DAILY 07/31/16 08/02/16 Morphine Ir [Ms Ir] 15 mg PO Q6H PRN #30 tablet 08/02/16 ondansetron HCL [Zofran] 4 mg PO Q6H PRN #20 tablet 08/02/16 traMADol [Ultram] 50 mg PO Q4-6H 08/02/16 08/02/16 Ondansetron Odt [Zofran] 4 mg TL Q6H PRN #10 tablet 08/15/22 Cyclobenzaprine [Flexeril] 10 mg PO TID PRN #20 tablet 12/02/23 Lidocaine Patch 5% [Lidoderm Patch] 1 patch TOP DAILY PRN #10 patch 12/02/23 - Allergies Allergies/Adverse Reactions: Allergies Allergy/AdvReac Type Severity Reaction Status Date / Time Penicillins Allergy Intermediate Rash Verified 08/14/22 14:15 hydrocodone AdvReac Severe Stomach Verified 08/14/22 14:15 pain - Social History Does the pt smoke?: No Smoking Status: Never smoker Does the pt drink ETOH?: Yes Does the pt have substance abuse?: No - Immunizations Immunizations are current?: Yes - POLST Patient has POLST: Yes PD ED PE NORMAL - Vitals Vital signs reviewed: Yes - General General: Alert and oriented X 3, No acute distress - HEENT HEENT: Atraumatic, PERRL, EOMI, Ears normal - Neck Neck: Supple, no meningeal sign - Cardiac Cardiac: RRR, No murmur, No gallop, No rub, Strong equal pulses - Respiratory Respiratory: No respiratory distress, Clear bilaterally - Abdomen Abdomen: Normal bowel sounds, Non tender, Non distended, No organomegaly - Female Female : Deferred - Back Back: Other (Reproducible upper paraspinal thoracic tenderness along the muscles no thoracic spinous process tenderness. Full strength intact in bilateral upper extremities pulses intact in upper and lower extremities. ) - Extremities Extremities: No deformity - Neuro Neuro: Alert and oriented X 3, No motor deficit, No sensory deficit Results - Vitals Vitals: Vital Signs - 24 hr 12/02/23 13:52 Temperature 36.8 C Heart Rate 89 Respiratory 17 Rate Blood Pressure 112/54 L O2 Saturation 98 Oxygen O2 Source [With Activity] Room air O2 Source Room air PD Medical Decision Making - ED course Complexity details: reviewed old records, re-evaluated patient ED course: Patient is a 77-year-old female with past medical history as described above. Patient presents to the emergency department with upper back pain that has been going on for about a week now she notes it improved for a few days but returned to the shortly after and worsened it initially was on the left side of her shoulder and her subscapular patient now radiates to right subscapular across her back. She has known coronary artery disease no chest pain or shortness of breath associate with her symptoms. Symptoms worsen with movement. Reproducible upper paraspinal thoracic tenderness along the muscles no thoracic spinous process tenderness. Full strength intact in bilateral upper extremities pulses intact in upper and lower extremities. Normal cardiac and lung sounds on auscultation. EKG obtained on arrival was reassuring no acute change from previous EKG in 2020. Patient given Toradol Flexeril and lidocaine patch for pain control reevaluated patient 20 minutes after medications given she denies any improvement in symptoms. Patient recommended to have labs and imaging done to ensure no acute cardio or pulmonary cause of her symptoms however she declines this. She would like to go home and rest she would like to follow-up with her massage therapist in the outpatient setting. She feels her symptoms only worsen with movement and does not feel symptoms are secondary to any cardiac or lung problems. Discussed with patient risks of missing these diagnoses and she understands and agrees with risks including disability or even . Patient agreeable with going home and following up with any worsening pain, shortness of breath, numbness, tingling, headaches, worsening pain, or any other new or worsening symptoms. Patient discharged with flexeril and instructed to only take at night and not with any home opioid medications. Departure - Departure Disposition: 01 Home, Self Care Clinical Impression: Thoracic back pain, Back pain, Acute pain Condition: Good Comments: Your workup here was not able to be completely performed I have sent pain medications for musculoskeletal pain however we were not able to rule out any other acute cause of the symptoms please be careful taking the muscle relaxer at home as it will make you sleepy only take it prior to bedtime or laying down. Use heat on your back to see if this helps with your musculoskeletal pain, and if you develop any chest pain or shortness of breath you need to return to emergency department immediately. Return with any other new or worsening symptoms. Do not take Flexeril with your tramadol at home, it can cause sedating effects.
[2023-12-02] MEDS: CYCLOBENZAPRINE 10 MG TABLET PO STA (15:20)
[2023-12-02] MEDS: LIDOCAINE PATCH 5% TOP STA (15:21)
[2023-12-02] MEDS: KETOROLAC 15 MG/ML VIAL IM STA (15:45)
[2023-12-02] MEDS: KETOROLAC 15 MG/ML VIAL IVP STA (15:47)
--- NOTE | 2023-12-02 16:38 | XRAY Report ---
PROCEDURE: Chest 1V INDICATIONS: left sided chest pain TECHNIQUE: One view of the chest was acquired. COMPARISON: 02/22/2021. FINDINGS: Surgical changes and devices: None. Lungs and pleura: No pleural effusions or pneumothorax. Mild left basilar opacity. Mediastinum: Mediastinal contours appear normal. Heart size is normal. Bones and chest wall: No suspicious bony lesions. Overlying soft tissues appear unremarkable. IMPRESSION: Mild left basilar opacity, differential includes atelectasis or infection. Otherwise clear. Reviewed by: Curtis Sanchez MD on 12/02/2023 4:37 PM PDT Approved by: Curtis Sanchez MD on 12/02/2023 4:37 PM PDT Station ID: [id number]
== END 2023-12-02 16:38 | disposition home or self-care (01) ==
LOC: ED 13:41
DX: M54.6 Pain in thoracic spine (principal); Z79.899 Other long term (current) drug therapy
CPT/HCPCS: 71045; 93005; 96372; 99284; A9270; 80053; 84484; 85025

== ENCOUNTER 2023-12-04 15:57 | Outpatient (CLI) | payer OTHER | END 2023-12-04 15:58 | disposition EMS.NT | LOC: EMS 15:57 | DX: M54.50 Low back pain, unspecified (principal); X50.0XXA Overexertion from strenuous movement or load, initial encounter; Y93.K9 Activity, other involving animal care ==

== ENCOUNTER 2023-12-04 16:28 | Emergency (ER) | payer OTHER ==
[2023-12-04 16:59] VITALS: BP 132/72; O2SAT 97
--- NOTE | 2023-12-04 17:02 | ED Physician Documentation ---
PD HPI BACK PAIN - Stated complaint Stated Complaint: BACK PX - Chief complaint Chief Complaint: Back Pain - History obtained from History obtained from: Patient - History of Present Illness Pain level max: 5 Pain level now: 5 Quality: Pain, Spasm Associated symptoms: No: Fever, Weakness, Numbness, Incontinent of urine, Unable to urinate, Hematuria, Incontinent of stool Contributing factors: No: Anticoagulated, Cancer, IVDA - Additional information Additional information: Patient is a 77-year-old female who presents to the emergency department with 1 week of back pain. She states that she was picking up her 40 pound dog about a week ago when she felt the pain in her mid back. She states it was starting to get better but today she went to pick something up off the floor and when she stood up she had pain in her back again. She had cyclobenzaprine and lidocaine patches from her prior ER visits, she states that that is not helping her pain. Worse with movement, better with rest. No numbness or tingling. No focal neurological deficits. No IV drug use. No history of cancer. 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 : None HEENT: None Psych: Depression, Anxiety Musculoskeletal: None Derm: None - Past Surgical History Past Surgical History: Yes General: Colonoscopy, EGD Ortho: Rotator cuff repair /GATE SERVICES SUPERVISOR: section HEENT: Cataracts, Tonsil/Adenoidectomy - Present Medications Home Medications: Ambulatory Orders Medication Instructions Recorded Confirmed Lorazepam [Ativan] 3 mg PO DAILY 03/20/14 06/07/19 Sertraline [Zoloft] 300 mg PO DAILY 03/20/14 06/07/19 Zaleplon 20 mg PO QPM 03/20/14 08/02/16 Buspirone HCl 15 mg PO BID 11/27/14 08/02/16 ARIPiprazole [Abilify] 5 mg PO DAILY 07/31/16 08/02/16 C-Ketotifen 1 mg PO BID PRN 07/31/16 08/02/16 Celecoxib [Celebrex] 200 mg PO DAILY 07/31/16 08/02/16 Imipramine HCl 150 mg PO DAILY 07/31/16 08/02/16 Thyroid [[place] Thyroid] 65 mg PO DAILY 07/31/16 08/02/16 Morphine Ir [Ms Ir] 15 mg PO Q6H PRN #30 tablet 08/02/16 ondansetron HCL [Zofran] 4 mg PO Q6H PRN #20 tablet 08/02/16 traMADol [Ultram] 50 mg PO Q4-6H 08/02/16 08/02/16 Ondansetron Odt [Zofran] 4 mg TL Q6H PRN #10 tablet 08/15/22 Cyclobenzaprine [Flexeril] 10 mg PO TID PRN #20 tablet 12/02/23 Lidocaine Patch 5% [Lidoderm Patch] 1 patch TOP DAILY PRN #10 patch 12/02/23 oxyCODONE [Roxicodone] 5 - 10 mg PO Q6H PRN #14 tablet 12/04/23 MDD 6 - Allergies Allergies/Adverse Reactions: Allergies Allergy/AdvReac Type Severity Reaction Status Date / Time Penicillins Allergy Intermediate Rash Verified 12/04/23 16:46 hydrocodone AdvReac Mild Stomach Verified 12/04/23 16:46 pain - Social History Does the pt smoke?: No Smoking Status: Never smoker Does the pt drink ETOH?: Yes Does the pt have substance abuse?: No - Immunizations Immunizations are current?: Yes - POLST Patient has POLST: Yes PD ED PE NORMAL - Vitals Vital signs reviewed: Yes - General General: Alert and oriented X 3, No acute distress - HEENT HEENT: Moist mucous membranes - Back Back: Other (No midline tenderness to palpation or percussion. No step-off or deformity. Mild paraspinal spasm mid thoracic.) - Derm Derm: Warm and dry - Extremities Extremities: Other (Normal bilateral lower extremity patellar and ankle jerk reflexes. Normal great toe extension bilaterally. no saddle anesthesia) - Neuro Neuro: Alert and oriented X 3, No motor deficit, No sensory deficit Results - Vitals Vitals: Vital Signs - 24 hr 12/04/23 12/04/23 16:36 16:47 Temperature 97.8 C H 36.6 C Heart Rate 89 Respiratory 16 Rate Blood Pressure 132/72 H O2 Saturation 97 Oxygen O2 Source [With Activity] Room air O2 Source Room air PD Medical Decision Making - ED course Complexity details: reviewed old records, considered differential (No cauda equina, no spinal epidural abscess, no fracture, no aortic dissection or eviden ce of aneursym rupture), d/w patient, d/w family ED course: 77-year-old female with back pain and spasm. Atraumatic. No midline tenderness to palpation or percussion. No step-off or deformity. No focal neurological deficits. No evidence of cauda equina, epidural abscess. No red flags. Will place on pain medication for home, gentle stretching and follow-up with her doctor for further care. Patient counseled regarding signs and symptoms for which I believe and urgent re-evaluation would be necessary. Patient with good understanding of and agreement to plan and is comfortable going home at this time This document was made in part using voice recognition software. While efforts are made to proofread this document, sound alike and grammatical errors may occur. Departure - Departure Disposition: 01 Home, Self Care Clinical Impression: Thoracic back pain Qualifiers: Chronicity: acute Back pain laterality: bilateral Qualified Code(s): M54.6 - Pain in thoracic spine Condition: Good Instructions: ED Neck Back Pain General Follow-Up: Francisco Berg MD [Primary Care Provider] - Within 1 week Prescriptions: oxyCODONE [Roxicodone] 5 - 10 mg PO Q6H PRN #14 tablet MDD 6 PRN Reason: pain Comments: Your prescriptions were sent to [facility] in [place]. Please follow-up with your doctor for further care. Please return if you worsen. This should improve over the next few days. I am prescribing a short course of narcotic pain medication for you. These are potentially dangerous and addictive medications that should be used carefully. These medications may constipate you. Take an [id number] stool softener (docusate) twice daily with plenty of water while taking these medications. If you go 24 hours without a bowel movement, take [id number] miralax, per package instructions. Do not drink or drive while taking these medications. If you received narcotic or sedating medications while in the emergency department, do not drive for 24 hours. Store this medication in a safe, secure place and out of reach of children. It is a violation of federal law to give or sell this medication to another person or to use in a manner other than prescribed. The ED will not refill narcotic prescriptions, including prescriptions lost or stolen. To dispose of unwanted medications: 1. [facility] [address] in [place] has a medication drop box. They accept prescription medications (in pill form) Thursday through Thursday 9:00 a.m. to 5:00 p.m. 2. The [facility] [employer] accepts prescription medications (in pill form only) for disposal year round. Call for more infor mation. 3. Contact the [facility] for the next [employer] sponsored prescription drug collection event. , [phone], or [phone];
[2023-12-04] MEDS: oxyCODONE 5 MG TABLET PO STA (17:03)
== END 2023-12-04 17:22 | disposition home or self-care (01) ==
LOC: ED 16:28
DX: M54.6 Pain in thoracic spine (principal); Z79.899 Other long term (current) drug therapy
CPT/HCPCS: 99283; A9270

== ENCOUNTER 2023-12-05 12:14 | Outpatient (CLI) | payer OTHER | END 2023-12-05 12:15 | disposition critical access hospital (66) | LOC: EMS 12:14 | DX: R41.82 Altered mental status, unspecified (principal) | CPT/HCPCS: A0425; A0429 ==

== ENCOUNTER 2023-12-05 12:24 | Emergency (ER) | payer OTHER ==
--- NOTE | 2023-12-05 12:52 | ED Physician Documentation ---
History of Present Illness - Stated complaint Stated Complaint: BACK PX/MED REACTION - Chief complaint Chief Complaint: General - History obtained from History obtained from: Patient - Additonal information Additional information: She is been here at the last 2 days for back pain and received some oxycodone and Flexeril. She is now confused. Says she still has back pain. Does not know when she last took medications. Limited history as she is confused. 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 : None HEENT: None Psych: Depression, Anxiety Musculoskeletal: None, Chronic back pain Derm: None - Past Surgical History Past Surgical History: Yes General: Colonoscopy, EGD Ortho: Rotator cuff repair /WAITER/WAITRESS COCKTAIL LOUNGE: section HEENT: Cataracts, Tonsil/Adenoidectomy - Present Medications Home Medications: Ambulatory Orders Medication Instructions Recorded Confirmed Lorazepam [Ativan] 3 mg PO DAILY 03/20/14 06/07/19 Sertraline [Zoloft] 300 mg PO DAILY 03/20/14 06/07/19 Zaleplon 20 mg PO QPM 03/20/14 08/02/16 Buspirone HCl 15 mg PO BID 11/27/14 08/02/16 ARIPiprazole [Abilify] 5 mg PO DAILY 07/31/16 08/02/16 C-Ketotifen 1 mg PO BID PRN 07/31/16 08/02/16 Celecoxib [Celebrex] 200 mg PO DAILY 07/31/16 08/02/16 Imipramine HCl 150 mg PO DAILY 07/31/16 08/02/16 Thyroid [[place] Thyroid] 65 mg PO DAILY 07/31/16 08/02/16 Morphine Ir [Ms Ir] 15 mg PO Q6H PRN #30 tablet 08/02/16 ondansetron HCL [Zofran] 4 mg PO Q6H PRN #20 tablet 08/02/16 traMADol [Ultram] 50 mg PO Q4-6H 08/02/16 08/02/16 Ondansetron Odt [Zofran] 4 mg TL Q6H PRN #10 tablet 08/15/22 Cyclobenzaprine [Flexeril] 10 mg PO TID PRN #20 tablet 12/02/23 Lidocaine Patch 5% [Lidoderm Patch] 1 patch TOP DAILY PRN #10 patch 12/02/23 oxyCODONE [Roxicodone] 5 - 10 mg PO Q6H PRN #14 tablet 12/04/23 MDD 6 - Allergies Allergies/Adverse Reactions: Allergies Allergy/AdvReac Type Severity Reaction Status Date / Time Penicillins Allergy Intermediate Rash Verified 12/05/23 12:26 hydrocodone AdvReac Mild Stomach Verified 12/05/23 12:26 pain - Social History Does the pt smoke?: No Smoking Status: Never smoker Does the pt drink ETOH?: Yes Does the pt have substance abuse?: No - Immunizations Immunizations are current?: Yes - POLST Patient has POLST: Yes PD ED PE NORMAL - Vitals Vital signs reviewed: Yes - General General: Other (She is alert and oriented to person and place but not time or events. For example when asked her the date she said it is (today is Thursday)) - HEENT HEENT: Other (Small but reactive pupils, equal) - Neck Neck: Supple, no meningeal sign, No bony TTP - Cardiac Cardiac: RRR, No murmur - Respiratory Respiratory: No respiratory distress, Clear bilaterally - Abdomen Abdomen: Non tender - Neuro Eye Opening: Spontaneous Motor: Obeys Commands Verbal: Confused GCS Score: 14 Results - Vitals Vitals: Vital Signs - 24 hr 12/05/23 12/05/23 12:27 14:54 Temperature 36.8 C 36.5 C Heart Rate 100 88 Respiratory 16 16 Rate Blood Pressure 139/72 H 130/70 O2 Saturation 98 100 Oxygen O2 Source [With Activity] Room air O2 Source Room air - Labs Labs: Laboratory Tests 12/05/23 12/05/23 12/05/23 13:10 13:13 13:13 WBC 7.1 RBC 5.00 Hgb 14.4 Hct 44.1 MCV 88.2 MCH 28.8 MCHC 32.7 RDW 13.4 Plt Count 209 MPV 9.7 Neut # (Auto) 5.4 Lymph # (Auto) 1.0 L [place] # (Auto) 0.5 Eos # (Auto) 0.1 Baso # (Auto) 0.1 Absolute Nucleated RBC 0.00 Nucleated RBC % 0.0 Sodium 139 Potassium 3.9 Chloride 103 Carbon Dioxide 28 Anion Gap 8.0 BUN 15 Creatinine 0.7 Estimated GFR (MDRD) 81 L Glucose 105 H Calcium 10.4 H Magnesium 1.8 Total Bilirubin 0.6 AST 20 ALT 17 Alkaline Phosphatase 62 Ammonia Total Protein 7.5 Albumin 5.0 Globulin 2.5 Albumin/Globulin Ratio 2.0 Urine Color YELLOW Urine Clarity CLEAR Urine pH 5.5 Ur Specific [place] 1.020 Urine Protein NEGATIVE Urine Glucose (UA) NEGATIVE Urine Ketones 15 H Urine Occult Blood SMALL H Urine Nitrite NEGATIVE Urine Bilirubin NEGATIVE Urine Urobilinogen 0.2 (NORMAL) Ur Leukocyte Esterase NEGATIVE Urine RBC 0-5 Urine WBC 0-3 Ur Squamous Epith Cells RARE Squamous Urine Bacteria Rare Ur Microscopic Review INDICATED Urine Culture Comments NOT INDICATED Urine Opiates Screen POSITIVE H Ur Buprenorphine Scrn NEGATIVE Ur Oxycodone Screen NEGATIVE Urine Methadone Screen NEGATIVE Ur Barbiturates Screen NEGATIVE Ur Tricyclics Screen NEGATIVE Ur Phencyclidine Scrn NEGATIVE Ur Amphetamine Screen NEGATIVE U Methamphetamines Scrn NEGATIVE U Benzodiazepines Scrn POSITIVE H Urine Cocaine Screen NEGATIVE U Cannabinoids Screen NEGATIVE Ur Drug Screen Comment CUTOFF CONC BELOW: Ethyl Alcohol < 10.0 12/05/23 13:13 WBC RBC Hgb Hct MCV MCH MCHC RDW Plt Count MPV Neut # (Auto) Lymph # (Auto) [place] # (Auto) Eos # (Auto) Baso # (Auto) Absolute Nucleated RBC Nucleated RBC % Sodium Potassium Chloride Carbon Dioxide Anion Gap BUN Creatinine Estimated GFR (MDRD) Glucose Calcium Magnesium Total Bilirubin AST ALT Alkaline Phosphatase Ammonia 16.6 L Total Protein Albumin Globulin Albumin/Globulin Ratio Urine Color Urine Clarity Urine pH Ur Specific Stanley Urine Protein Urine Glucose (UA) Urine Ketones Urine Occult Blood Urine Nitrite Urine Bilirubin Urine Urobilinogen Ur Leukocyte Esterase Urine RBC Urine WBC Ur Squamous Epith Cells Urine Bacteria Ur Microscopic Review Urine Culture Comments Urine Opiates Screen Ur Buprenorphine Scrn Ur Oxycodone Screen Urine Methadone Screen Ur Barbiturates Screen Ur Tricyclics Screen Ur Phencyclidine Scrn Ur Amphetamine Screen U Methamphetamines Scrn U Benzodiazepines Scrn Urine Cocaine Screen U Cannabinoids Screen Ur Drug Screen Comment Ethyl Alcohol - Rads (name of study) CT of the head is negative/normal Relevant Findings:: Final report received, EMP independent interpretation of test PD Medical Decision Making - ED course ED course: This is a 77-year-old woman who presents with confusion that is acute. She was recently started on Flexeril and cyclobenzaprine. They think that she took the last dose last night but she is not a reliable historian to prove that. Independent history from the daughter who arrived to the bedside subsequent to my initial evaluation. She has mild memory issues at baseline but this is certainly not her baseline at this point. Review of her home medication and pharmacy list suggest that she is probably a victim of polypharmacy. In addition to the new oxycodone and cyclobenzaprine, she chronically takes trihexyphenidyl, aripiprazole, lorazepam as potential psychoactive medications. The differential diagnosis would include other causes of delirium which we will screen for with CBC, CMP, urinalysis, and toxicology stressing which was only notable for positive opiates and benzodiazepines and a CT of the head. On reexamination at 2:45 PM she has improved. Still little confused but now when I ask for the date she says it is Thursday, and when I asked her the year she gets it correct. Daughter at the bedside will stay with her. Departure - Departure Disposition: Home, Self Care Clinical Impression: Delirium, Polypharmacy Condition: Good Record reviewed to determine appropriate education?: Yes Instructions: Delirium Comments: You were seen today for delirium related to polypharmacy, the addition of the muscle relaxer and narcotic pain medication to your other psychoactive medications (trihexyphenidyl, Abilify, and lorazepam) made you confused. You have improved in the department albeit not resolved. I would not take Flexeril and or oxycodone again in the future and you should discuss your current medication regimen with your primary care physician. Call your doctor to arrange a follow-up appointment, make the next available appointment. In the interim, return anytime if worse or if new symptoms develop. Do not drive until completely resolved. Forms: PCP List Discharge Date/Time: 12/05/23 14:54
[2023-12-05 13:17] LABS: BASOPHILS # (AUTO) 0.1 10^3/uL (0.0-0.1); BASOPHILS % (AUTO) 0.8 %; EOSINOPHILS # (AUTO) 0.1 10^3/uL (0.0-0.7); EOSINOPHILS % (AUTO) 1.8 %; HCT - HEMATOCRIT 44.1 % (37.0-47.0); HGB - HEMOGLOBIN 14.4 g/dL (12.0-16.0); LYMPHOCYTES % (AUTO) 14.7 %; MEAN CORPUSCULAR HEMOGLOBIN 28.8 pg (27.0-31.0); MEAN CORPUSCULAR HGB CONC 32.7 g/dL (32.0-36.0); MEAN CORPUSCULAR VOLUME 88.2 fL (81.0-99.0); MEAN PLATELET VOLUME 9.7 fL (7.9-10.8); MONOCYTES # (AUTO) 0.5 10^3/uL (0.0-1.0); MONOCYTES % (AUTO) 6.3 %; NEUTROPHILS # (AUTO) 5.4 10^3/uL (1.5-6.6); PLT - PLATELET COUNT 209 10^3/uL (130-450); RED CELL DISTRIBUTION WIDTH 13.4 % (12.0-15.0); WHITE BLOOD COUNT 7.1 x10^3/uL (4.8-10.8)
[2023-12-05 13:27] LABS: BILIRUBIN,URINE NEGATIVE (NEGATIVE); GLUCOSE, URINE (UA) NEGATIVE (NEGATIVE); KETONES,URINE (UA) 15 mg/dL (NEGATIVE); LEUKOCYTE ESTERASE, URINE NEGATIVE (NEGATIVE); NITRITE,URINE NEGATIVE (NEGATIVE); OCCULT BLOOD,URINE SMALL (NEGATIVE); PH,URINE 5.5 PH (5.0-7.5); PROTEIN,URINE NEGATIVE (NEGATIVE); UROBILINOGEN,URINE 0.2 (NORMAL) E.U./dL (NORMAL)
[2023-12-05 13:28] LABS: CLARITY,URINE CLEAR (CLEAR)
[2023-12-05 13:41] LABS: ALKALINE PHOSPHATASE 62 IU/L (42-121); ALT ALANINE AMINOTRANSFERASE 17 IU/L (10-60); AST ASPARTATE AMINOTRANSFERASE 20 IU/L (10-42); BILIRUBIN,TOTAL 0.6 mg/dL (0.2-1.0); BUN - BLOOD UREA NITROGEN 15 mg/dL (6-20); CALCIUM 10.4 mg/dL (8.5-10.3); CARBON DIOXIDE - CO2 28 mmol/L (21-32); CHLORIDE 103 mmol/L (101-111); CREATININE 0.7 mg/dL (0.6-1.3); ETOH - ETHANOL < 10.0 mg/dL; GFR - MDRD 81 (>89); GLUCOSE 105 mg/dL (74-104); MAGNESIUM 1.8 mg/dL (1.7-2.3); POTASSIUM 3.9 mmol/L (3.5-4.5); SODIUM 139 mmol/L (135-145); TOTAL PROTEIN 7.5 g/dL (6.4-8.9)
[2023-12-05] MEDS: ONDANSETRON ODT 4 MG TABLET TL STA (13:43)
[2023-12-05 13:49] LABS: BENZODIAZEPINES SCREEN, URINE POSITIVE (NEGATIVE); COCAINE SCREEN URINE NEGATIVE (NEGATIVE); OPIATE SCREEN, URINE POSITIVE (NEGATIVE); THC CANNABINOID SCREEN, URINE NEGATIVE (NEGATIVE)
[2023-12-05 13:50] LABS: AMPHETAMINE SCREEN,URINE NEGATIVE (NEGATIVE); BARBITURATE SCREEN,UR NEGATIVE (NEGATIVE); BUPRENORPHINE SCREEN, URINE NEGATIVE (NEGATIVE); METHADONE SCREEN, URINE NEGATIVE (NEGATIVE); METHAMPHETAMINES SCREEN, URINE NEGATIVE (NEGATIVE); OXYCODONE SCREEN, URINE NEGATIVE (NEGATIVE); TRICYCLIC ANTIDEPRESSANT,URINE NEGATIVE (NEGATIVE)
[2023-12-05 14:14] LABS: BACTERIA,URINE Rare /HPF (None Seen); RBC,URINE 0-5 /HPF (0-5); SQUAMOUS EPITHELIAL CELL,UR RARE Squamous (<= Few); WBC,URINE 0-3 /HPF (0-5)
[2023-12-05 14:56] VITALS: BP 130/70; O2SAT 100
--- NOTE | 2023-12-05 15:01 | CT Report ---
PROCEDURE: Head WO INDICATIONS: ams TECHNIQUE: Noncontrast 4.5 mm thick angled axial sections acquired from the foramen magnum to the vertex. For r adiation dose reduction, the following was used: automated exposure control, adjustment of mA and/or kV according to patient size. COMPARISON: 05/21/2022 FINDINGS: Image quality: Excellent. CSF spaces: Basal cisterns are patent. No extra-axial fluid collections. Ventricles are normal in size and shape. Brain: No midline shift. No intracranial masses or hemorrhage. Fabian-white matter interface is norm al. Skull and face: Calvarium and visualized facial bones are intact, without suspicious lesions. Sinuses: Visualized sinuses and mastoids are clear. IMPRESSION: No acute intracranial pathology. Similar to prior. Reviewed by: Domenic Green MD on 12/05/2023 2:00 PM [email or web address] Approved by: Domenic Green MD on 12/05/2023 2:00 PM [email or web address] Station ID: [id number]
== END 2023-12-05 14:54 | disposition home or self-care (01) ==
LOC: EDUNIT# → ED 12:24
DX: R41.0 Disorientation, unspecified (principal); Z79.899 Other long term (current) drug therapy
CPT/HCPCS: 36415; 70450; 80053; 80306; 81001; 82077; 82140; 83735; 85025; 99284; Q0162; 81003; 87086

== ENCOUNTER 2023-12-19 10:41 | Outpatient (CLI) | payer OTHER ==
--- NOTE | 2023-12-19 22:09 | XRAY Report ---
PROCEDURE: Thoracic Spine 2V INDICATIONS: BACK PAIN TECHNIQUE: 2 views of the thoracic spine were acquired. COMPARISON: CT abdomen and pelvis dated 08/15/2022. FINDINGS: Bones: There is a mild to moderate compression of T9 which is age indeterminate and has developed sin ce the previous study. There is diffuse osteopenia. No suspicious bony lesions. 12 pairs of ribs are noted, and appear intact where visualized. Soft tissues: No paravertebral stripe thickening. IMPRESSION: 1. A mild to moderate compression of T9 is age indeterminate. It has developed since the previous chari dy. Comment: If suspect acute or subacute T9 compression fracture, consider thoracic spine MRI for confir mation. Reviewed by: Richard Lovelace MD on 12/19/2023 10:08 PM PDT Approved by: Richard Lovelace MD on 12/19/2023 10:08 PM PDT Station ID: [id number]
== END 2023-12-19 10:42 | disposition home or self-care (01) ==
LOC: DI 10:41
PROVIDERS: ATTEND Nurse Practitioner Family
DX: M85.88 Other specified disorders of bone density and structure, other site (principal); G95.29 Other cord compression

== ENCOUNTER 2024-01-07 16:25 | Outpatient (CLI) | payer OTHER ==
--- NOTE | 2024-01-08 13:43 | MRI Report ---
PROCEDURE: Thoracic Spine WO INDICATIONS: THORACIC BACK PAIN TECHNIQUE: Noncontrast sagittal T1 spine echo and T2 fast spin echo, sagittal STIR, axial T1 and T2 fast spin ec ho through the thoracic spine. COMPARISON: X-ray thoracic spine 12/19/2023 FINDINGS: Image quality: Excellent. Alignment and Curvature: Mild levocurvature of the thoracic spine. Bone Marrow: Mild/moderate compression deformity of the T9 vertebral body with associated edema, cons istent with acute or subacute etiology. No significant retropulsion. Spinal Cord: Visualized spinal cord is normal in size and signal. Paraspinous Soft Tissues: No paravertebral masses. Miscellaneous: Mild multilevel disc desiccation and mild height loss. Minimal posterior disc bulges. On axial images, central canal and foramina appear widely patent at all scanned levels. Degenerativ e changes of the cervical spine with at least moderate to severe central canal stenosis at C6-C7. IMPRESSION: 1.Mild to moderate compression deformity of the T9 vertebral body with associated edema, consistent w ith acute or subacute etiology. No significant retropulsion. 2.Multilevel degenerative changes of the thoracic spine without central canal or neuroforaminal steno sis. 3.Partially visualized degenerative changes of the cervical spine with at least moderate to severe ce ntral canal stenosis at C6-C7. If clinically indicated, dedicated MRI of the cervical spine can be ob tained. Reviewed by: Curtis Sanchez MD on 01/08/2024 1:42 PM PDT Approved by: Curtis Sanchez MD on 01/08/2024 1:42 PM PDT Station ID: [id number]
== END 2024-01-07 16:26 | disposition home or self-care (01) ==
LOC: DI 16:25
PROVIDERS: ATTEND Nurse Practitioner Family
DX: M47.814 Spondylosis without myelopathy or radiculopathy, thoracic region (principal); M43.8X4 Other specified deforming dorsopathies, thoracic region; M47.812 Spondylosis without myelopathy or radiculopathy, cervical region; M48.02 Spinal stenosis, cervical region

== ENCOUNTER 2024-01-16 09:27 | Outpatient (CLI) | payer OTHER | END 2024-01-16 23:59 | disposition critical access hospital (66) | LOC: EMS 09:27 | DX: R10.84 Generalized abdominal pain (principal); R19.31 Right upper quadrant abdominal rigidity; R14.0 Abdominal distension (gaseous); W01.198A Fall on same level from slipping, tripping and stumbling with subsequent striking against other object, initial encounter; Y92.009 Unspecified place in unspecified non-institutional (private) residence as the place of occurrence of the external cause | CPT/HCPCS: A0425; A0427 ==

== ENCOUNTER 2024-01-16 09:40 | Emergency (ER) | payer OTHER ==
[2024-01-16] MEDS: SODIUM CHLORIDE 0.9% 1,000 ML IV STA (10:11)
[2024-01-16 10:13] LABS: BASOPHILS % (AUTO) 0.5 %; EOSINOPHILS # (AUTO) 0.4 10^3/uL (0.0-0.7); EOSINOPHILS % (AUTO) 4.7 %; HCT - HEMATOCRIT 36.1 % (37.0-47.0); HGB - HEMOGLOBIN 11.7 g/dL (12.0-16.0); LYMPHOCYTES # (AUTO) 1.3 10^3/uL (1.5-3.5); LYMPHOCYTES % (AUTO) 16.6 %; MEAN CORPUSCULAR HGB CONC 32.4 g/dL (32.0-36.0); MEAN CORPUSCULAR VOLUME 89.6 fL (81.0-99.0); MEAN PLATELET VOLUME 10.1 fL (7.9-10.8); MONOCYTES # (AUTO) 0.6 10^3/uL (0.0-1.0); MONOCYTES % (AUTO) 8.4 %; NEUTROPHILS # (AUTO) 5.3 10^3/uL (1.5-6.6); NEUTROPHILS % (AUTO) 69.4 %; PLT - PLATELET COUNT 181 10^3/uL (130-450); RED BLOOD COUNT 4.03 10^6/uL (4.20-5.40); RED CELL DISTRIBUTION WIDTH 14.5 % (12.0-15.0); WHITE BLOOD COUNT 7.6 x10^3/uL (4.8-10.8)
[2024-01-16] MEDS: HYDROmorphone 1 MG/ML CARPUJECT IVP STA (10:15)
[2024-01-16] MEDS: KETOROLAC 15 MG/ML VIAL IVP STA (10:15)
[2024-01-16 10:27] LABS: ALBUMIN 4.1 g/dL (3.2-5.5); ALBUMIN/GLOBULIN RATIO 1.9 (1.0-2.2); BILIRUBIN,TOTAL 0.4 mg/dL (0.2-1.0); CALCIUM 9.3 mg/dL (8.5-10.3); CREATININE 0.7 mg/dL (0.6-1.3); MAGNESIUM 1.8 mg/dL (1.7-2.3); TOTAL PROTEIN 6.3 g/dL (6.4-8.9)
[2024-01-16] MEDS ORDERED: iohexoL-300 100 ML VIAL ONE (10:29)
--- NOTE | 2024-01-16 11:39 | XRAY Report ---
PROCEDURE: Knee 3V LT INDICATIONS: fall to left knee; anterior tender TECHNIQUE: 3 views of the knee(s) were acquired. COMPARISON: 08/02/2021 and 11/27/2014. FINDINGS: Bones: No fractures or dislocations. No suspicious bony lesions. Tricompartmental osteoarthrosis. Soft tissues: No significant knee joint effusion. Continued interval increase in size of hyperdense oval soft tissue lesion adjacent to the medial femoral condyle now measuring approximately 2.4 x 1.2 cm versus approximately 0.7 x 0.3 cm on 11/27/2014 IMPRESSION: No acute bony abnormality. Tricompartmental osteoarthrosis. Continued interval increase in size of oval hyperdense soft tissue lesion adjacent to the medial femo ral condyle measuring up to 2.4 cm versus 0.7 cm previously. Recommend further evaluation with outpat ient MRI of the left knee with without contrast to further characterize. Reviewed by: Nirmal De La Cruz MD on 01/16/2024 10:38 AM STEFANO Approved by: Nirmal De La Cruz MD on 01/16/2024 10:38 AM STEFANO Station ID: [id number]
--- NOTE | 2024-01-16 11:51 | CT Report ---
PROCEDURE: Chest W INDICATIONS: fall with right anterior chest/abd pain CONTRAST: omni, 100 TECHNIQUE: After the administration of intravenous contrast, a CT scan of the chest was performed. Images were recorded and evaluated at appropriate window settings. Reformats: axial MIP of the chest, coronal and sagittal. For radiation dose reduction, the following was used: automated exposure control, adjustme nt of mA and/or kV according to patient size. COMPARISON: Chest radiograph dated 12/02/2023 FINDINGS: Image quality: Diagnostic. Chest wall and lower neck: No thyroid nodule which requires sonographic follow up. No breast mass. No axillary or supraclavicular adenopathy by size. Lungs and pleura: No consolidation. Moderate bibasilar atelectasis. No septal thickening or nodularit y. No pleural effusions. No pneumothorax. No suspicious pulmonary nodules which require follow up. Mediastinum: Heart size is normal. No pericardial effusion. No large vessel abnormality. No mediastin al adenopathy by size criteria. Bones: No aggressive osseous abnormality. Nondisplaced acute anterolateral right seventh and eighth r ib fractures with possible nondisplaced anterior right fifth rib fracture. Age-indeterminate compress ion fracture of the superior endplate of T10. No significant paravertebral soft tissue swelling/hemat rich. There is also a fracture of the posterior/inferior aspect of the spinous process of T9. This is also indeterminate but likely subacute to chronic given cortication on both sides of the fracture monique e. No asymmetric widening of the posterior elements. Multilevel thoracic spondylitic changes. Upper Abdomen: Hepatic steatosis. Abdomen and pelvis findings reported separately. Please see other r eport for further details. IMPRESSION: Acute, nondisplaced anterolateral right seventh and eighth rib fractures and possible nondisplaced an terior right fifth rib fracture. Moderate bibasilar atelectasis. No pneumothorax or substantial pleur al effusion. Age-indeterminate but likely subacute to chronic superior endplate compression fracture of the T10 ve rtebral body. Age-indeterminate fracture involving the posterior/inferior aspect of the T9 spinous process favored to be more chronic in etiology given cortication on both sides of the fracture line. Hepatic steatosis. Please see separate CT abdomen/pelvis report for further details. Reviewed by: Nirmal De La Cruz MD on 01/16/2024 10:50 AM STEFANO Approved by: Nirmal De La Cruz MD on 01/16/2024 10:50 AM STEFANO Station ID: [id number]
--- NOTE | 2024-01-16 11:59 | CT Report ---
PROCEDURE: Abdomen/Pelvis W INDICATIONS: fall yest with right chest/abd pain CONTRAST: omni, 100 TECHNIQUE: After the administration of intravenous contrast, a CT scan of the abdomen and pelvis was performed. Images were recorded and evaluated at appropriate window settings. Reformats: coronal and sagittal. F or radiation dose reduction, the following was used: automated exposure control, adjustment of mA and /or kV according to patient size. COMPARISON: None. FINDINGS: Image quality: Diagnostic. Lower chest: Moderate bibasilar atelectasis.. Liver: Hepatic steatosis. Small subcentimeter hepatic hypodensity in the inferior aspect of the right hepatic lobe likely representing a cyst or hemangioma. No evidence for acute traumatic injury. Gallbladder: Mild gallbladder distention. No radiodense stone seen. No wall thickening or pericholecy stic stranding. Biliary tree: No intrahepatic or extrahepatic dilation, accounting for age. Spleen: No splenomegaly. Pancreas: No pancreatic ductal dilation. Adrenals: No adrenal nodule. Kidneys and ureters: No hydronephrosis. No renal cystic lesion which requires follow up. No solid mas s. Stomach, bowel and peritoneum: No gastric or small bowel dilation. No abnormal wall thickening. No pa thologic free fluid. Lymph nodes: No central or retroperitoneal adenopathy. Vessels: No infrarenal aortic aneurysm. Patent portal vein. PELVIS Reproductive organs: Unremarkable. Bladder: No abnormal wall thickening, accounting for underdistention. Pelvic lymph nodes: No pelvic adenopathy by size criteria. Bones: No aggressive osseous abnormality. Acute, minimally displaced fractures of the anterolateral r ight seventh and eighth ribs. Age-indeterminate superior endplate compression fracture of T10 and age -indeterminate fracture involving the posterior, inferior aspect of the T9 spinous process. These are favored to be subacute to chronic in etiology. These are better described on dedicated CT of the [facility]. Please see separate report for details. Healed fracture deformities of the bilateral inferior pub ic rami. Other: No significant ventral or inguinal hernia. IMPRESSION: CT abdomen and pelvis without acute traumatic injuries to the solid or hollow organs. Age-indeterminate but likely subacute to chronic fractures of the T10 vertebral body and T9 spinous p rocess. These are better evaluated on dedicated CT of the chest. Please see separate report for furth er details. Acute anterolateral fractures of the right seventh and eighth ribs. These are also better seen on [facility] chest CT. Other chronic/nonacute findings as above. Reviewed by: Nirmal De La Cruz MD on 01/16/2024 10:57 AM STEFANO Approved by: Nirmal De La Cruz MD on 01/16/2024 10:57 AM STEFANO Station ID: [id number]
--- NOTE | 2024-01-16 12:57 | ED Physician Documentation ---
PD HPI ABD PAIN - Stated complaint Stated Complaint: GLF - Chief complaint Chief Complaint: Trauma Abd - History obtained from History obtained from: Patient - History of Present Illness Timing - onset: Yesterday Timing - details: Abrupt onset, Still present, Waxing and waning Quality: Cramping, Aching, Pain Location: RUQ, Other (also struck left knee when fell.) Radiation: Chest (she states she was carrying basket and lost balance falling forward onto knees and the basket struck into right abd/chest. Pain that area mainly, hurting with movement and moderately deep breathing.) Improved by: Laying still. No: Eating Worsened by: Moving, Palpation. No: Eating Associated symptoms: Nausea, Loss of appetite. No: Fever, Vomiting, Near syncope / syncope Similar symptoms before: Has not had sx before Review of Systems Constitutional: denies: Fever, Chills Nose: denies: Rhinorrhea / runny nose, Congestion Throat: denies: Sore throat Cardiac: reports: Chest pain / pressure. denies: Pedal edema, Calf pain Respiratory: denies: Cough GI: reports: Abdominal Pain, Nausea. 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 HEENT: Cataracts, Tonsil/Adenoidectomy - Present Medications Home Medications: Ambulatory Orders Medication Instructions Recorded Confirmed Lorazepam [Ativan] 3 mg PO DAILY 03/20/14 06/07/19 Sertraline [Zoloft] 300 mg PO DAILY 03/20/14 06/07/19 Zaleplon 20 mg PO QPM 03/20/14 08/02/16 Buspirone HCl 15 mg PO BID 11/27/14 08/02/16 ARIPiprazole [Abilify] 5 mg PO DAILY 07/31/16 08/02/16 C-Ketotifen 1 mg PO BID PRN 07/31/16 08/02/16 Celecoxib [Celebrex] 200 mg PO DAILY 07/31/16 08/02/16 Imipramine HCl 150 mg PO DAILY 07/31/16 08/02/16 Thyroid [[place] Thyroid] 65 mg PO DAILY 07/31/16 08/02/16 Morphine Ir [Ms Ir] 15 mg PO Q6H PRN #30 tablet 08/02/16 ondansetron HCL [Zofran] 4 mg PO Q6H PRN #20 tablet 08/02/16 traMADol [Ultram] 50 mg PO Q4-6H 08/02/16 08/02/16 Ondansetron Odt [Zofran] 4 mg TL Q6H PRN #10 tablet 08/15/22 Cyclobenzaprine [Flexeril] 10 mg PO TID PRN #20 tablet 12/02/23 Lidocaine Patch 5% [Lidoderm Patch] 1 patch TOP DAILY PRN #10 patch 12/02/23 oxyCODONE [Roxicodone] 5 - 10 mg PO Q6H PRN #14 tablet 12/04/23 MDD 6 Lidocaine 4 % TP DAILY PRN #18 patch 01/16/24 Meloxicam [Mobic] 7.5 mg PO BID 15 Days #30 tablet 01/16/24 Tramadol HCl 100 mg PO Q6H PRN #30 tablet 01/16/24 - Allergies Allergies/Adverse Reactions: Allergies Allergy/AdvReac Type Severity Reaction Status Date / Time Penicillins Allergy Intermediate Rash Verified 12/05/23 12:26 oxycodone AdvReac Intermediate Anxiety Verified 01/16/24 09:50 - Social History Does the pt smoke?: No Smoking Status: Former smoker Does the pt drink ETOH?: Yes Does the pt have substance abuse?: No - Immunizations Immunizations are current?: Yes - POLST Patient has POLST: Yes PD ED PE NORMAL - Vitals Vital signs reviewed: Yes - General General: Alert and oriented X 3, Well developed/nourished - HEENT HEENT: Atraumatic - Neck Neck: Supple, no meningeal sign, No bony TTP - Cardiac Cardiac: RRR, No murmur - Respiratory Respiratory: No respiratory distress, Clear bilaterally - Abdomen Abdomen: Soft, Non distended, No organomegaly, Other (tender right abd both upper and mid abd on that side. Left not tender. No bruising noted. There is chestwall tenderness noted as well anterolateral area, without crapitance nor bruising. ) - Derm Derm: Normal color, Warm and dry - Extremities Extremities: No edema, No calf tenderness / cord, Other (left knee tender anteriorly without deformity nor effusion. Can flex and extend though seems stiff for movement. ) - Neuro Neuro: Alert and oriented X 3, No motor deficit, No sensory deficit Results - Vitals Vitals: Vital Signs - 24 hr 01/16/24 01/16/24 01/16/24 09:35 09:57 10:01 Temperature 36.0 C L Heart Rate 79 Respiratory 18 Rate Blood Pressure 130/73 O2 Saturation 93 87 L 95 If not protocol 2 : Oxygen Flow, liters/minute 01/16/24 01/16/24 01/16/24 11:00 12:07 13:23 Temperature Heart Rate 82 79 81 Respiratory 18 12 18 Rate Blood Pressure 93/58 L 110/65 123/68 O2 Saturation 97 95 97 If not protocol 2 2 : Oxygen Flow, liters/minute Oxygen O2 Source [With Activity] Room air O2 Source Nasal cannula - Labs Labs: Laboratory Tests 01/16/24 01/16/24 09:45 09:45 WBC 7.6 RBC 4.03 L Hgb 11.7 L Hct 36.1 L MCV 89.6 MCH 29.0 MCHC 32.4 RDW 14.5 Plt Count 181 MPV 10.1 Neut # (Auto) 5.3 Lymph # (Auto) 1.3 L [place] # (Auto) 0.6 Eos # (Auto) 0.4 Baso # (Auto) 0.0 Absolute Nucleated RBC 0.00 Nucleated RBC % 0.0 Sodium 138 Potassium 4.0 Chloride 107 Carbon Dioxide 26 Anion Gap 5.0 L BUN 19 Creatinine 0.7 Estimated GFR (MDRD) 81 L Glucose 96 Calcium 9.3 Magnesium 1.8 Total Bilirubin 0.4 AST 16 ALT 13 Alkaline Phosphatase 60 Total Protein 6.3 L Albumin 4.1 Globulin 2.2 Albumin/Globulin Ratio 1.9 Lipase 11 - Rads (name of study) chest/abd/pelvic CT Relevant Findings:: Prelim report reviewed (nondisplaced rib fracture right anterior 8 and 9, possibley 5 as well. No organ injury. Prior T9 compression fax noted. ) PD Medical Decision Making - ED course Complexity details: reviewed results (2 rib fractures (question of thrid but not really tender at 5th rib). Knee xray without fracture.), considered differential (fall with anterior chest/abd injury. Can get imaging with contrast to eval for organ and osseuous injuries. ), d/w patient Departure - Departure Disposition: 01 Home, Self Care Clinical Impression: Accidental fall, Knee contusion, Chest wall contusion, Rib fractures Condition: Stable Record reviewed to determine appropriate education?: Yes Instructions: ED Fx Rib Prescriptions: Lidocaine 4 % TP DAILY PRN #18 patch PRN Reason: Pain 1-4 Meloxicam [Mobic] 7.5 mg PO BID 15 Days #30 tablet Tramadol HCl 100 mg PO Q6H PRN #30 tablet PRN Reason: Pain 5-7 Comments: Your CT scans show 2 rib fractures on the right, #8 and 9. There was a? Of the fifth 1 as well but that would be unusual to be not in a series. Typically we allow the ribs to heal on their own "Free range" without rib belts or straps etc. as those really only restrict your breathing. You can treat topically with lidocaine patches or so but mostly anti- inflammatories in conjunction with Tylenol 500 to 650 mg 4 times a day. To that add the tramadol at your request if needed for pain. Activity as tolerated. Your knee is showing arthritis in the knee on x-ray but no signs of fractures. Activity as tolerated. I sent prescriptions to [facility] pharmacy at your direction. Follow-up with your primary care in the next week or so. Call for an appointment. Your pain in the rib areas will take about 4 to 6 weeks for full healing but there should be a considerable tapering of the pain over the next week or 2. My narcotic instructionsI am prescribing a short course of narcotic pain medication for you. These are potentially dangerous and addictive medications that should be used carefully. These medications may constipate you. Take an gaks-enf-fllglnq stool softener s uch as docusate twice daily with plenty of water while taking these medications. If you go 24 hours without a bowel movement, take wrlk-gle-jdxwimr MiraLAX, per package instructions. Do not drink or drive while taking these medications. If you received narcotic or sedating medications while in the emergency department do not drive for 24 hours. Store this medication in a safe, secure place and out of reach of children. It is a violation of federal law to give or sell this medication to another person or to use in a manner other than prescribed. The ED will not refill narcotic prescriptions, including prescriptions lost or stolen. You can dispose of unwanted medications at the [facility]'s office or at several pharmacies such as [facility]. Forms: PCP List Discharge Date/Time: 01/16/24 13:34
[2024-01-16 13:31] VITALS: BP 123/68; O2SAT 97
[2024-01-16] MEDS: iohexoL-300 100 ML VIAL IVP ONE (16:07)
== END 2024-01-16 13:34 | disposition home or self-care (01) ==
LOC: EDUNIT# → ED 09:40
DX: S22.41XA Multiple fractures of ribs, right side, initial encounter for closed fracture (principal); S80.02XA Contusion of left knee, initial encounter; S20.211A Contusion of right front wall of thorax, initial encounter; W18.30XA Fall on same level, unspecified, initial encounter; E78.00 Pure hypercholesterolemia, unspecified; Z79.899 Other long term (current) drug therapy; Z87.891 Personal history of nicotine dependence
CPT/HCPCS: 36415; 71260; 73562; 74177; 80053; 83690; 83735; 85025; 93005; 96374; 99283; 99284; J1170; Q9967

== ENCOUNTER 2024-01-18 15:36 | Outpatient (CLI) | payer OTHER | END 2024-01-18 23:59 | disposition critical access hospital (66) | LOC: EMS 15:36 | DX: R07.81 Pleurodynia (principal); Z91.81 History of falling | CPT/HCPCS: A0425; A0427 ==

== ENCOUNTER 2024-01-18 15:44 | Emergency (ER) | payer OTHER ==
--- NOTE | 2024-01-18 15:55 | ED Physician Documentation ---
PD HPI CHEST PAIN - Stated complaint Stated Complaint: RIB PX - History obtained from History obtained from: Patient - Additional information Additional information: 78-year-old woman took a ground-level fall 2 days ago and was seen here by my partner. She had right seventh and eighth rib fractures and potentially 1 other rib fracture. She was sent home with lidocaine patches, meloxicam, and tramadol. She is taking Tylenol for the pain and says she was scared of the tramadol. That said she says she is taking something else for the pain but cannot recall what it is. She is taking lorazepam it well as well. She is somewhat of fuzzy historian right now but did receive 75 mcg of fentanyl from EMS. Reportedly was not hypoxic but now is slightly hypoxic after the fentanyl. After review of the chart, asked her if she was taking lidocaine patches and meloxicam and she is. She is taking an occasional tramadol but does not really like it. 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 HEENT: Cataracts, Tonsil/Adenoidectomy - Present Medications Home Medications: Ambulatory Orders Medication Instructions Recorded Confirmed Lorazepam [Ativan] 3 mg PO DAILY 03/20/14 06/07/19 Sertraline [Zoloft] 300 mg PO DAILY 03/20/14 06/07/19 Zaleplon 20 mg PO QPM 03/20/14 08/02/16 Buspirone HCl 15 mg PO BID 11/27/14 08/02/16 ARIPiprazole [Abilify] 5 mg PO DAILY 07/31/16 08/02/16 C-Ketotifen 1 mg PO BID PRN 07/31/16 08/02/16 Celecoxib [Celebrex] 200 mg PO DAILY 07/31/16 08/02/16 Imipramine HCl 150 mg PO DAILY 07/31/16 08/02/16 Thyroid [[place] Thyroid] 65 mg PO DAILY 07/31/16 08/02/16 Morphine Ir [Ms Ir] 15 mg PO Q6H PRN #30 tablet 08/02/16 ondansetron HCL [Zofran] 4 mg PO Q6H PRN #20 tablet 08/02/16 traMADol [Ultram] 50 mg PO Q4-6H 08/02/16 08/02/16 Ondansetron Odt [Zofran] 4 mg TL Q6H PRN #10 tablet 08/15/22 Cyclobenzaprine [Flexeril] 10 mg PO TID PRN #20 tablet 12/02/23 Lidocaine Patch 5% [Lidoderm Patch] 1 patch TOP DAILY PRN #10 patch 12/02/23 oxyCODONE [Roxicodone] 5 - 10 mg PO Q6H PRN #14 tablet 12/04/23 MDD 6 Lidocaine 4 % TP DAILY PRN #18 patch 01/16/24 Meloxicam [Mobic] 7.5 mg PO BID 15 Days #30 tablet 01/16/24 Tramadol HCl 100 mg PO Q6H PRN #30 tablet 01/16/24 HYDROcod/ACETAM 5/325 [[place] 5/325] 1 - 2 tab PO Q6H PRN #30 tablet 01/18/24 - Allergies Allergies/Adverse Reactions: Allergies Allergy/AdvReac Type Severity Reaction Status Date / Time Penicillins Allergy Intermediate Rash Verified 01/18/24 15:51 oxycodone AdvReac Intermediate Anxiety Verified 01/18/24 15:51 - Social History Does the pt smoke?: No Smoking Status: Former smoker Does the pt drink ETOH?: Yes Does the pt have substance abuse?: No - Immunizations Immunizations are current?: Yes - POLST Patient has POLST: Yes PD ED PE NORMAL - Vitals Vital signs reviewed: Yes - General General: Alert and oriented X 3, No acute distress - Cardiac Cardiac: RRR, No murmur - Respiratory Respiratory: Other (She is quite tender over the right lateral chest. Lungs are clear and nonlabored.) - Abdomen Abdomen: Non tender - Neuro Neuro: Alert and oriented X 3 Results - Vitals Vitals: Vital Signs - 24 hr 01/18/24 15:51 Temperature 36.6 C Heart Rate 91 Respiratory 12 Rate Blood Pressure 148/62 H O2 Saturation 93 Oxygen O2 Source [] Room air O2 Source Nasal cannula - Rads (name of study) Single view chest x-ray demonstrates patchy bibasilar atelectasis without acute findings otherwise. Relevant Findings:: Final report received, EMP independent interpretation of test PD Medical Decision Making - ED course ED course: She has known rib fractures and has uncontrolled pain. She is scared of the tramadol but taking it occasionally. She was not able to fill the lidocaine patches at the pharmacy. On arrival here she is much better after fentanyl en route and she was allowed to wait an appropriate length of time for the fentanyl to wear off at which point her pain was still controlled. Repeat x-ray showed no complications. She very much wanted to go home but I did discuss with her that admission to the hospital was an option which she declined. Departure - Departure Disposition: Home, Self Care Clinical Impression: Rib fractures Qualifiers: Encounter type: initial encounter Fracture type: closed Laterality: right Qualified Code(s): S22.41XA - Multiple fractures of ribs, right side, initial encounter for closed fracture Condition: Good Record reviewed to determine appropriate education?: Yes Instructions: ED Rib Belt Prescriptions: HYDROcod/ACETAM 5/325 [[place] 5/325] 1 - 2 tab PO Q6H PRN #30 tablet PRN Reason: Pain Comments: I [facility] the [facility] [place]. As discussed you can buy doye-suz-pncxchn lidocaine patches since the pharmacy did not have that for you when he went before. And you can stop the tramadol. You can continue to take the meloxicam that was prescribed by Dr. Mederos. Expect the pain to be severe for a few more days, and then taper off but it will not be completely pain-free for many weeks. Call your doctor to arrange a follow-up appointment, make the next available appointment. In the interim, return anytime if worse or if new symptoms develop.
--- NOTE | 2024-01-18 16:21 | XRAY Report ---
PROCEDURE: Chest 1V INDICATIONS: Increased pain, recent rib fractures TECHNIQUE: One view of the chest was acquired. COMPARISON: CT chest dated 01/16/2024, chest 1 view dated 12/02/2023. FINDINGS: Surgical changes and devices: None. Lungs and pleura: No pneumothorax. No identified pleural fluid. Submaximal inspiration with patchy b ibasilar atelectasis. Mediastinum: Mediastinal contours appear normal. Heart size is normal. Bones and chest wall: No suspicious bony lesions. Rib fractures are not well identified on chest victorino m. Overlying soft tissues appear unremarkable. IMPRESSION: No pneumothorax. No significant fluid. Patchy bibasilar atelectasis. Reviewed by: Richard Lovelace MD on 01/18/2024 4:19 PM PDT Approved by: Richard Lovelace MD on 01/18/2024 4:19 PM PDT Station ID: [id number]
[2024-01-18] MEDS: HYDROcod/ACETAM 5/325 MG TABLET PO STA (16:56)
[2024-01-18 17:03] VITALS: BP 134/68; O2SAT 95
== END 2024-01-18 17:09 | disposition home or self-care (01) ==
LOC: EDUNIT# → ED 15:44
DX: S22.41XA Multiple fractures of ribs, right side, initial encounter for closed fracture (principal); W18.30XA Fall on same level, unspecified, initial encounter; Z87.891 Personal history of nicotine dependence
CPT/HCPCS: 71045; 99283; 99284; A9270

== ENCOUNTER 2024-01-19 02:20 | Outpatient (CLI) | payer OTHER | END 2024-01-19 22:18 | disposition EMS.NT | LOC: EMS 02:20 | DX: R07.81 Pleurodynia (principal) ==

== ENCOUNTER 2024-01-19 08:21 | Outpatient (CLI) | payer OTHER | END 2024-01-19 23:59 | disposition critical access hospital (66) | LOC: EMS 08:21 | DX: R07.81 Pleurodynia (principal); R07.89 Other chest pain; S22.41XA Multiple fractures of ribs, right side, initial encounter for closed fracture; W19.XXXA Unspecified fall, initial encounter | CPT/HCPCS: A0425; A0429 ==

== ENCOUNTER 2024-01-19 08:28 | Emergency (ER) | payer OTHER ==
[2024-01-19 08:36] VITALS: BP 150/78; O2SAT 94
--- NOTE | 2024-01-19 08:55 | ED Physician Documentation ---
History of Present Illness - Stated complaint Stated Complaint: PAIN - Chief complaint Chief Complaint: General - History obtained from History obtained from: Patient, Friend - History of Present Illness Timing: How many days ago (4) - Additonal information Additional information: Gayatri benson is a 78-year-old female who had a fall 4 days ago fracturing 2 ribs. She is returned yesterday for evaluation of her pain and was started on hydrocodone. This morning she has a spike in her pain again and she is come back to the emergency department by ambulance.She has had enough pain that she is not getting out of bed to get water. Review of Systems Constitutional: denies: Fever Eyes: denies: Decreased vision Ears: denies: Ear pain Nose: denies: Rhinorrhea / runny nose, Congestion Throat: denies: Sore throat Cardiac: reports: Chest pain / pressure. denies: Palpitations, Pedal edema, Calf pain Respiratory: denies: Dyspnea, Cough GI: denies: Abdominal Pain, Nausea, Vomiting, Constipation, Diarrhea PD PAST MEDICAL HISTORY - Past Medical History Past Medical History: Yes Cardiovascular: High cholesterol Respiratory: Other Neuro: None Endocrine/Autoimmune: None GI: GERD POKER IN: None : None HEENT: None Psych: Depression, Anxiety Musculoskeletal: Osteoporosis, Chronic back pain Derm: None - Past Surgical History Past Surgical History: No General: Colonoscopy, EGD Ortho: Rotator cuff repair /POKER IN: section HEENT: Cataracts, Tonsil/Adenoidectomy - Present Medications Home Medications: Ambulatory Orders Medication Instructions Recorded Confirmed Lorazepam [Ativan] 3 mg PO DAILY 03/20/14 06/07/19 Sertraline [Zoloft] 300 mg PO DAILY 03/20/14 06/07/19 Zaleplon 20 mg PO QPM 03/20/14 08/02/16 Buspirone HCl 15 mg PO BID 11/27/14 08/02/16 ARIPiprazole [Abilify] 5 mg PO DAILY 07/31/16 08/02/16 C-Ketotifen 1 mg PO BID PRN 07/31/16 08/02/16 Celecoxib [Celebrex] 200 mg PO DAILY 07/31/16 08/02/16 Imipramine HCl 150 mg PO DAILY 07/31/16 08/02/16 Thyroid [[place] Thyroid] 65 mg PO DAILY 07/31/16 08/02/16 Morphine Ir [Ms Ir] 15 mg PO Q6H PRN #30 tablet 08/02/16 ondansetron HCL [Zofran] 4 mg PO Q6H PRN #20 tablet 08/02/16 traMADol [Ultram] 50 mg PO Q4-6H 08/02/16 08/02/16 Ondansetron Odt [Zofran] 4 mg TL Q6H PRN #10 tablet 08/15/22 Cyclobenzaprine [Flexeril] 10 mg PO TID PRN #20 tablet 12/02/23 Lidocaine Patch 5% [Lidoderm Patch] 1 patch TOP DAILY PRN #10 patch 12/02/23 oxyCODONE [Roxicodone] 5 - 10 mg PO Q6H PRN #14 tablet 12/04/23 MDD 6 Lidocaine 4 % TP DAILY PRN #18 patch 01/16/24 Meloxicam [Mobic] 7.5 mg PO BID 15 Days #30 tablet 01/16/24 Tramadol HCl 100 mg PO Q6H PRN #30 tablet 01/16/24 HYDROcod/ACETAM 5/325 [[place] 5/325] 1 - 2 tab PO Q6H PRN #30 tablet 01/18/24 - Allergies Allergies/Adverse Reactions: Allergies Allergy/AdvReac Type Severity Reaction Status Date / Time Penicillins Allergy Intermediate Rash Verified 01/19/24 08:36 oxycodone AdvReac Intermediate Anxiety Verified 01/19/24 08:36 - Social History Does the pt smoke?: No Smoking Status: Never smoker Does the pt drink ETOH?: Yes Does the pt have substance abuse?: No - Immunizations Immunizations are current?: Yes - POLST Patient has POLST: Yes PD ED PE NORMAL - Vitals Vital signs reviewed: Yes (hypertensive ) - General General: Alert and oriented X 3, No acute distress, Well developed/nourished - HEENT HEENT: Atraumatic, PERRL, EOMI - Neck Neck: Supple, no meningeal sign, No bony TTP - Cardiac Cardiac: RRR, No murmur - Respiratory Respiratory: No respiratory distress, Clear bilaterally, Other (right chest wall tenderness without crepitance) - Abdomen Abdomen: Soft, Non tender - Back Back: No CVA TTP, No spinal TTP - Derm Derm: Normal color, Warm and dry, No rash - Extremities Extremities: No deformity, No edema - Neuro Neuro: Alert and oriented X 3, senior business architect 2-12 intact, No motor deficit, No sensory deficit, Normal speech Eye Opening: Spontaneous Motor: Obeys Commands Verbal: Oriented GCS Score: 15 - Psych Psych: Normal mood, Normal affect Results - Vitals Vitals: Vital Signs - 24 hr 01/19/24 08:31 Temperature 37.1 C Heart Rate 82 Respiratory 20 Rate Blood Pressure 150/78 H O2 Saturation 94 Oxygen O2 Source [] Room air O2 Source Room air - Rads (name of study) chest Relevant Findings:: Prelim report reviewed (Impression: Left basilar scarring/atelectasis. No definite focal infiltrate. Mild pulmonary vascular congestion. No pleural effusion or pneumothorax.), EMP independent interpretation of test Procedures - IVC sono (time) 0850 Bedside IVC sono: IVC measures (cm) (0.79), IVC collapsed c insp (cm) (complete), Dehydration (est 2 liter deficit) PD Medical Decision Making - ED course Complexity details: reviewed old records, reviewed results, re-evaluated patient, considered differential, d/w patient, d/w family ED course: 78-year-old female with rib fracture 4 days ago presents with a spike in pain. She has clear lungs on exam. She is administered dexamethasone and Toradol as well as a liter of saline. We did find that she was dehydrated on interrogation of the IVC with POCUS. She indicates that she has not been getting up to get water. The patient has marked improvement in her level of pain and feels well enough to go back to home. I have indicated the patient that she is likely to have continued issues with pain for 5 to 6 weeks and that today is likely a peak in her pain. We have reviewed her pain management with medications including meloxicam and hydrocodone with acetaminophen. Departure - Departure Disposition: 01 Home, Self Care Clinical Impression: Rib fractures Qualifiers: Encounter type: subsequent encounter Fracture type: closed Laterality: right Fracture healing: with routine healing Qualified Code(s): S22.41XD - Multiple fractures of ribs, right side, subsequent encounter for fracture with routine healing Condition: Stable Instructions: ED Fx Rib Follow-Up: Francisco Berg MD [Provider Admit Priv/Credential] - Comments: Gayatri, today it looks like there are no complications with your rib fractures and this is an expected peak in your pain. Today we have given you dexamethasone and Toradol which should help with the rest of the day and may make your pain generally better for about 2 days. When your pain begins to return take additional pain medication. You are taking 7.5 mg of meloxicam and this should be taken twice per day. This is a anti-inflammatory. You also have some hydrocodone prescribed which does have Tylenol in it. Take 1 or 2 of these pills as often as every 4 hours as needed for pain. This condition is painful and you will need to take some more pain medication before this has resolved. Forms: PCP List Discharge Date/Time: 01/19/24 11:59
[2024-01-19] MEDS: DEXAMETHASONE 10 MG/ML VIAL IVP STA (09:07)
[2024-01-19] MEDS: KETOROLAC 30 MG/ML VIAL IVP STA (09:07)
[2024-01-19] MEDS: SODIUM CHLORIDE 0.9% 1,000 ML IV STA (09:08)
--- NOTE | 2024-01-19 09:27 | XRAY Report ---
PROCEDURE: Chest 1V INDICATIONS: chest pain TECHNIQUE: One view of the chest was acquired. COMPARISON: None. FINDINGS: Surgical changes and devices: None. Lungs and pleura: There is mild pulmonary vascular congestion. Linear scarring/atelectasis in left l ower lung field is seen. No definite focal infiltrate. No significant pleural effusion or pneumothora x.. Mediastinum: Mediastinal contours appear normal. Heart size is normal. Bones and chest wall: No suspicious bony lesions. Overlying soft tissues appear unremarkable. IMPRESSION: Left basilar scarring/atelectasis. No definite focal infiltrate. Mild pulmonary vascular congestion. No pleural effusion or pneumothorax. Reviewed by: Adam Acosta MD on 01/19/2024 9:25 AM PDT Approved by: Adam Acosta MD on 01/19/2024 9:25 AM PDT Station ID: [id number]
== END 2024-01-19 11:59 | disposition home or self-care (01) ==
LOC: EDUNIT# → ED 08:28
DX: S22.41XD Multiple fractures of ribs, right side, subsequent encounter for fracture with routine healing (principal); X58.XXXA Exposure to other specified factors, initial encounter; E78.00 Pure hypercholesterolemia, unspecified; Z79.899 Other long term (current) drug therapy
CPT/HCPCS: 96374; 99284

== ENCOUNTER 2024-01-21 13:19 | Emergency (ER) | payer OTHER ==
--- NOTE | 2024-01-21 14:12 | ED Physician Documentation ---
History of Present Illness - Stated complaint Stated Complaint: CP - Chief complaint Chief Complaint: General - History obtained from History obtained from: Patient, Friend - Additonal information Additional information: The patient is brought to the emergency department by her roommate for chief complaint of ongoing right chest wall tenderness after falling and breaking her ribs about 6 days ago. The patient states she had been walking was carrying a bucket when she fell down and impacted her right anterior rib cage just inferior to her breast. She was seen at that time and x-rays demonstrated fractures. She was placed on tramadol but this did not work for her pain so they came back and she was given hydrocodone. She increased that from 2 tablets every 6 hours to 2 tablets every 4 hours and is still hurting. Her roommate states he has been trying to help her but she just lays in bed because she hurts and does not seem to have a very high tolerance for pain. He states that she does not want to do anything and he is not able to just take care of her by himself. The patient denies fevers or chills. She states she occasionally coughs at night but has been avoiding it because it hurts. No other injuries. She states the pain she is having is in the area of the rib fractures. PD PAST MEDICAL HISTORY - Past Medical History Past Medical History: Yes Cardiovascular: High cholesterol Respiratory: Other Neuro: None Endocrine/Autoimmune: None GI: GERD HUMAN RESOURCES ADMINISTRATOR: None : None HEENT: None Psych: Depression, Anxiety Musculoskeletal: Osteoporosis, Chronic back pain Derm: None - Past Surgical History Past Surgical History: Yes General: Colonoscopy, EGD Ortho: Rotator cuff repair /HUMAN RESOURCES ADMINISTRATOR: section HEENT: Cataracts, Tonsil/Adenoidectomy - Present Medications Home Medications: Ambulatory Orders Medication Instructions Recorded Confirmed Lorazepam [Ativan] 3 mg PO DAILY 03/20/14 06/07/19 Sertraline [Zoloft] 300 mg PO DAILY 03/20/14 06/07/19 Zaleplon 20 mg PO QPM 03/20/14 08/02/16 Buspirone HCl 15 mg PO BID 11/27/14 08/02/16 ARIPiprazole [Abilify] 5 mg PO DAILY 07/31/16 08/02/16 C-Ketotifen 1 mg PO BID PRN 07/31/16 08/02/16 Celecoxib [Celebrex] 200 mg PO DAILY 07/31/16 08/02/16 Imipramine HCl 150 mg PO DAILY 07/31/16 08/02/16 Thyroid [[place] Thyroid] 65 mg PO DAILY 07/31/16 08/02/16 Morphine Ir [Ms Ir] 15 mg PO Q6H PRN #30 tablet 08/02/16 ondansetron HCL [Zofran] 4 mg PO Q6H PRN #20 tablet 08/02/16 traMADol [Ultram] 50 mg PO Q4-6H 08/02/16 08/02/16 Ondansetron Odt [Zofran] 4 mg TL Q6H PRN #10 tablet 08/15/22 Cyclobenzaprine [Flexeril] 10 mg PO TID PRN #20 tablet 12/02/23 Lidocaine Patch 5% [Lidoderm Patch] 1 patch TOP DAILY PRN #10 patch 12/02/23 oxyCODONE [Roxicodone] 5 - 10 mg PO Q6H PRN #14 tablet 12/04/23 MDD 6 Lidocaine 4 % TP DAILY PRN #18 patch 01/16/24 Meloxicam [Mobic] 7.5 mg PO BID 15 Days #30 tablet 01/16/24 Tramadol HCl 100 mg PO Q6H PRN #30 tablet 01/16/24 HYDROcod/ACETAM 5/325 [[place] 5/325] 1 - 2 tab PO Q6H PRN #30 tablet 01/18/24 HYDROcod/ACETAM 5/325 [[place] 5/325] 1 - 2 tablet PO Q4H PRN #30 tablet 01/21/24 - Allergies Allergies/Adverse Reactions: Allergies Allergy/AdvReac Type Severity Reaction Status Date / Time Penicillins Allergy Intermediate Rash Verified 01/21/24 13:36 oxycodone AdvReac Intermediate Anxiety Verified 01/21/24 13:36 - Social History Does the pt smoke?: No Smoking Status: Never smoker Does the pt drink ETOH?: Yes Does the pt have substance abuse?: No - Immunizations Immunizations are current?: Yes - POLST Patient has POLST: Yes PD ED PE NORMAL - Vitals Vital signs reviewed: Yes - General General: No acute distress, Well developed/nourished, Other (Mildly drowsy patient who otherwise is well-appearing.) - HEENT HEENT: Atraumatic, EOMI, Moist mucous membranes - Neck Neck: Supple, no meningeal sign - Cardiac Cardiac: RRR, No murmur - Respiratory Respiratory: No respiratory distress, Clear bilaterally - Abdomen Abdomen: Soft, Non tender, Non distended - Derm Derm: Normal color, Warm and dry, No rash - Extremities Extremities: No deformity, No edema - Neuro Neuro: Other (Grossly intact, other than mild drowsiness) - Psych Psych: Normal mood, Normal affect - Free text exam Free text exam: Tenderness to palpation right anterior chest wall just inferior to right breast. No crepitus or step-off. Results - Vitals Vitals: Vital Signs - 24 hr 01/21/24 01/21/24 01/21/24 13:36 13:48 14:06 Temperature 36.5 C Heart Rate 80 80 76 Respiratory 14 17 20 Rate Blood Pressure 138/76 H 138/76 H O2 Saturation 93 94 94 If not protocol 2 : Oxygen Flow, liters/minute 01/21/24 01/21/24 14:46 15:26 Temperature Heart Rate 74 76 Respiratory 16 16 Rate Blood Pressure 138/76 H 132/79 H O2 Saturation 95 94 If not protocol : Oxygen Flow, liters/minute Oxygen O2 Source [] Room air O2 Source Room air - EKG (time done) 1351 EKG releavant findings:: EKG personally interpreted by author of this note. Relevant findings are: Rate: Rate (enter#) (80) Rhythm: NSR [place]: LAD (Borderline) Intervals: Other (Borderline short NC interval) QRS: Normal Ischemia: Non specific changes Compare to prior EKG: Old EKG unavailable Computer interpretation: Agree with computer PD Medical Decision Making - ED course Complexity details: reviewed old records, reviewed results, re-evaluated rachel nt, considered differential, d/w patient ED course: EKG was unremarkable. The chest x-ray showed some markings in the left lower lobe which appeared to likely be atelectasis. The patient was given incentive spirometer by the respiratory therapist. She and her roommate initially wanted to talk to social work about getting some assistance at home but they change their minds and decided that rather just get some assistive devices at the [facility]. I have refilled her pain medication but I have advised her that she needs to find a balance between being able to be awake and motivated enough to get up and also having pain that is reasonably controlled. Departure - Departure Disposition: 01 Home, Self Care Clinical Impression: Chest wall pain Rib fractures Qualifiers: Encounter type: initial encounter Fracture type: closed Laterality: right Qualified Code(s): S22.41XA - Multiple fractures of ribs, right side, initial encounter for closed fracture Condition: Stable Instructions: ED Fx Rib Prescriptions: HYDROcod/ACETAM 5/325 [[place] 5/325] 1 - 2 tablet PO Q4H PRN #30 tablet PRN Reason: Pain Comments: Your chest x-ray does not show pneumonia. Although you have pain from the fracture, you also need to keep moving, because failure to move will make your pain worse and it will also cause you to become weak and deconditioned. You need to find the balance between treating your pain and not being so sleepy and sedated that you do not feel motivated to get up out of bed. You also will have to come to terms with the fact that it is going to hurt to get up and you just have to put up with it for the time being in order to preserve your overall health. I have refilled your hydrocodone prescription. Please pick it up at the pharmacy as soon as you are done here. Please use the incentive spirometer that the respiratory therapist has given you. You should be blowing the ball up about 10 times every hour to make sure you are getting deep breaths. In general, rib fractures take 4 to 6 weeks to heal and he will most likely have some degree of pain throughout that time, though it should gradually get better. Forms: PCP List
[2024-01-21] MEDS: KETOROLAC 30 MG/ML VIAL IM STA (14:25)
--- NOTE | 2024-01-21 15:17 | XRAY Report ---
PROCEDURE: Chest 1V INDICATIONS: Chest pain TECHNIQUE: One view of the chest was acquired. COMPARISON: Chest radiographs 01/19/2024 and 01/18/2024. CT chest 01/16/2024 FINDINGS: Surgical changes and devices: Surgical anchor in the right humeral head. Lungs and pleura: Stable linear scarring or atelectasis in the left lower lung zone. Stable mild bladimir ateral interstitial prominence. No acute consolidation. No significant pleural effusion or pneumothor ax. Mediastinum: Mediastinal contours appear normal. Heart size is normal. Bones and chest wall: Previously seen rib fractures are not well-visualized radiographically. IMPRESSION: Stable bibasilar scarring or atelectasis. No significant interval change. Reviewed by: George Tovar MD on 01/21/2024 3:16 PM PDT Approved by: George Tovar MD on 01/21/2024 3:16 PM PDT Station ID: [id number]
[2024-01-21 15:36] VITALS: BP 132/79; O2SAT 94
== END 2024-01-21 15:49 | disposition home or self-care (01) ==
LOC: ED 13:19
DX: S22.41XA Multiple fractures of ribs, right side, initial encounter for closed fracture (principal); W18.39XA Other fall on same level, initial encounter; R07.89 Other chest pain; E78.00 Pure hypercholesterolemia, unspecified; Z79.899 Other long term (current) drug therapy
CPT/HCPCS: 80053; 83690; 84484; 85025; 93005; 96372; 99284